=== PATIENT | female | born 1980 | race Caucasian/White ===

== ENCOUNTER → 2021-08-26 16:47 | Outpatient (BNVA) | payer MEDICAID, SELFPAY | PROVIDERS: PCP Nurse Practitioner Family; Visit Provider Nurse Practitioner Family | DX: Z30.42 Encounter for surveillance of injectable contraceptive (principal); Z32.02 Encounter for pregnancy test, result negative | CPT/HCPCS: 81025 ==

== ENCOUNTER → 2022-06-17 15:37 | Outpatient (BNVA) | payer BC, SELFPAY | PROVIDERS: Visit Provider Nurse Practitioner | DX: N39.0 Urinary tract infection, site not specified (principal); Z20.2 Contact with and (suspected) exposure to infections with a predominantly sexual mode of transmission; L25.9 Unspecified contact dermatitis, unspecified cause | CPT/HCPCS: 87491; 87591; 87661 ==

== ENCOUNTER → 2022-07-25 14:47 | Outpatient (BNVA) | payer BC, MEDICAID, SELFPAY | PROVIDERS: Referring Provider Nurse Practitioner; Visit Provider Podiatrist Foot & Ankle Surgery | DX: S92.412A Displaced fracture of proximal phalanx of left great toe, initial encounter for closed fracture (principal); W23.0XXA Caught, crushed, jammed, or pinched between moving objects, initial encounter; R60.9 Edema, unspecified | CPT/HCPCS: 73630 ==

== ENCOUNTER → 2022-09-22 16:36 | Outpatient (BNVA) | payer BC, MEDICAID, SELFPAY | PROVIDERS: Visit Provider Nurse Practitioner | DX: Z30.42 Encounter for surveillance of injectable contraceptive (principal); Z79.899 Other long term (current) drug therapy | CPT/HCPCS: 80307; 84702 ==

== ENCOUNTER → 2023-04-17 16:43 | Outpatient (BNVA) | payer BC, MEDICAID, SELFPAY | PROVIDERS: PCP Family Medicine; Visit Provider Nurse Practitioner | DX: Z30.42 Encounter for surveillance of injectable contraceptive (principal) | CPT/HCPCS: 81025 ==

== ENCOUNTER → 2023-07-24 14:06 | Outpatient (BNVA) | payer BC, MEDICAID, SELFPAY | PROVIDERS: PCP Family Medicine; Visit Provider Nurse Practitioner | DX: Z30.42 Encounter for surveillance of injectable contraceptive (principal) | CPT/HCPCS: 81025 ==

== ENCOUNTER 2023-08-28 12:31 | Outpatient (CLI) | payer BC, MEDICAID, SELFPAY ==
--- NOTE | 2023-08-28 12:37 | XRR_ITS ---
PROCEDURE INFORMATION: Exam: XR Left Hand Exam date and time: 08/28/2023 12:40 PM Age: 43 years old Clinical indication: Pain; Finger(s); Left; Additional info: G56.03 - carpal tunnel syndrome, bilateral upper limbs TECHNIQUE: Imaging protocol: Radiologic exam of the left hand. Views: 3 or more views. COMPARISON: No relevant prior studies available. FINDINGS: Bones/joints: No fracture or dislocation is seen. Small 5 mm lucent cyst is seen within the subchondral distal 1st metacarpal along the outer margin. Osseous structures and joint spaces are otherwise unremarkable. No abnormal soft tissue calcification is seen. Soft tissues: No significant focal soft tissue abnormality. XR/XR hand LT min 3V* [id number] IMPRESSION: Small 5 mm subchondral cyst distal 1st metacarpal and otherwise negative exam left hand.
--- NOTE | 2023-08-28 12:37 | XRR_ITS ---
PROCEDURE INFORMATION: Exam: XR Right Hand Exam date and time: 08/28/2023 12:40 PM Age: 43 years old Clinical indication: Pain; Hand; Right; Additional info: G56.03 - carpal tunnel syndrome, bilateral upper limbs TECHNIQUE: Imaging protocol: Radiologic exam of the right hand. Views: 3 or more views. COMPARISON: CR XR finger RT min 2V [id number] 10/05/2021 11:58 AM FINDINGS: Bones/joints: No fracture or dislocation is seen. Osseous structures and joint spaces appear unremarkable. No abnormal soft tissue calcification is seen. Soft tissues: No significant focal soft tissue abnormality. XR/XR hand RT min 3V* [id number] IMPRESSION: No acute findings.
--- NOTE | 2023-08-28 12:37 | XRR_ITS ---
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 Pain for last month. ; Additional info: S20.211a - contusion of right front wall of thorax, initi. . . TECHNIQUE: Imaging protocol: Radiologic exam of the right ribs. Views: 2 views. COMPARISON: No relevant prior studies available. FINDINGS: Bones/joints: No fracture or other acute osseous abnormality is seen about the right ribs. Pleural space: No underlying pulmonary or pleural abnormality is seen. Soft tissues: Soft tissues show no focal abnormality. XR/XR ribs RT 2V* [id number] IMPRESSION: No acute findings.
== END 2023-08-28 12:32 | disposition home or self-care (01) ==
LOC: RAD 12:34
PROVIDERS: PCP Family Medicine; Visit Provider Nurse Practitioner Family
DX: S20.211A Contusion of right front wall of thorax, initial encounter (principal); X58.XXXA Exposure to other specified factors, initial encounter; G56.03 Carpal tunnel syndrome, bilateral upper limbs; M85.642 Other cyst of bone, left hand
CPT/HCPCS: 71100; 73130; 80053; 80061; 81003; 82306; 82607; 82746; 83036; 84443; 85025

== ENCOUNTER → 2023-09-04 10:44 | Outpatient (BNVA) | payer BC, MEDICAID, SELFPAY | PROVIDERS: PCP Family Medicine; Visit Provider Nurse Practitioner Family | DX: Z12.4 Encounter for screening for malignant neoplasm of cervix (principal) | CPT/HCPCS: 85651; 86038; 86140; 86431; 87624 ==

== ENCOUNTER → 2023-12-10 08:35 | Outpatient (BNVA) | payer BC, MEDICAID, SELFPAY | PROVIDERS: PCP Nurse Practitioner Family; Visit Provider Nurse Practitioner Family | DX: Z30.42 Encounter for surveillance of injectable contraceptive (principal); R31.9 Hematuria, unspecified | CPT/HCPCS: 81000; 81025 ==

== ENCOUNTER 2024-07-28 13:21 | Outpatient (CLI) | payer OTHER, SELFPAY ==
--- NOTE | 2024-07-28 13:30 | XR_ITS ---
WS: [id number] DEXA (DUAL ENERGY X-RAY ABSORPTIOMETRY) Bone mineral density was performed using a GuideWall machine. HISTORY: Z78.9 - Other specified health status COMPARISON: None available. Lumbar spine BMD (L1-L4): 1.265 g/cm2 T score: 0.7 Z score: 0.2 Total hip BMD: Left: 1.076 g/cm2. T score: 0.5 Z score: 0.4 Right: 1.156 g/cm2. T score: 1.2 Z score: 1.0 10 year probability of a major osteoporotic fracture is 2.4%. XR/XR DEXA axial skeleton* [id number] IMPRESSION: NORMAL BONE MINERAL DENSITY based upon the WHO classification for females.
== END 2024-07-28 13:22 | disposition home or self-care (01) ==
LOC: RAD 13:22
PROVIDERS: PCP Nurse Practitioner Family; Visit Provider Nurse Practitioner Family
DX: Z13.820 Encounter for screening for osteoporosis (principal); Z78.9 Other specified health status; Z91.89 Other specified personal risk factors, not elsewhere classified
CPT/HCPCS: 77080

== ENCOUNTER → 2024-11-17 10:23 | Outpatient (BNVA) | payer OTHER, SELFPAY | PROVIDERS: PCP Nurse Practitioner Family; Visit Provider Nurse Practitioner Family | DX: M67.919 Unspecified disorder of synovium and tendon, unspecified shoulder (principal); M67.432 Ganglion, left wrist; G56.03 Carpal tunnel syndrome, bilateral upper limbs; R31.9 Hematuria, unspecified; D64.9 Anemia, unspecified; Z30.42 Encounter for surveillance of injectable contraceptive; R70.0 Elevated erythrocyte sedimentation rate; N89.8 Other specified noninflammatory disorders of vagina | CPT/HCPCS: 73030; 73110; 80053; 81003; 81025; 83036; 85025; 85651; 87070; 87077; 87086; 87184; 87205 ==

== ENCOUNTER → 2025-01-06 10:47 | Outpatient (BNVA) | payer OTHER, SELFPAY | PROVIDERS: PCP Nurse Practitioner Family; Visit Provider Physician Assistant | DX: M19.012 Primary osteoarthritis, left shoulder (principal); M75.42 Impingement syndrome of left shoulder | CPT/HCPCS: 73030 ==

== ENCOUNTER → 2025-01-13 10:50 | Outpatient (BNVA) | payer OTHER, SELFPAY | PROVIDERS: PCP Nurse Practitioner Family; Visit Provider Physician Assistant | DX: G56.03 Carpal tunnel syndrome, bilateral upper limbs (principal); G56.21 Lesion of ulnar nerve, right upper limb | CPT/HCPCS: 73110 ==

== ENCOUNTER → 2025-01-20 13:42 | Outpatient (BNVA) | payer OTHER, SELFPAY | PROVIDERS: PCP Nurse Practitioner Family; Visit Provider Nurse Practitioner Family | DX: N39.0 Urinary tract infection, site not specified (principal) | CPT/HCPCS: 81000 ==

== ENCOUNTER 2025-01-26 05:41 | Day surgery (SDC) | payer OTHER, MEDICAID, SELFPAY ==
[2025-01-26] VITALS (7 sets, daily range): BP systolic 103–124; BP diastolic 81–91; PULSE 71–86; RESP 12–18; TEMP 36.1; O2SAT 95–100
--- NOTE | 2025-01-26 06:12 | P.ANESASSM_ITS ---
Pre-Anesthetic Assessment Height/Weight: Height 5 ft 9 in Preop Diagnosis: Carpal/cubital tunnel syndrome Operation Date: 01/26/25 07:00 Proposed Procedures p RIGHT Carpal Tunnel Release(Right) - Bruce Huntington, DO s RIGHT Cubital Tunnel Release(Right) - Bruce Jovanny, DO s POSSIBLE Ulnar Nerve Transposition(Right) - Bruce Huntington, DO Was Beta Lucie taken within 24 hours: N/A Was Clonidine taken within 24 hours: N/A Social No alcohol and No tobacco Exam alert, oriented x 3, clear to auscultation bilaterally and regular rate & rhythm Airway Submandibular: within normal limits Cervical ROM: within normal limits Mallampati: Class I Dentition: full Anesthetic Plan ASA status: 1 Anesthesia: General and Regional (specify below) Other: No prior issues with anesthesia NPO since yesterday evening Denies any cardiac or pulmonary issues Labs from October reviewed and WNL METs greater than 4 test neg Plan for general anesthesia with preop nerve block Medications/Allergies Home Medications ?Medication ?Instructions ?Recorded ?Confirmed ?Last Taken ?Type medroxyprogesterone 150 mg/mL 150 mg IM ONCE 90 days # 90 mL 11/17/24 01/25/25 Unknown Rx intramuscular suspension ciprofloxacin HCl 250 mg tablet 250 mg PO BID 5 days # 10 tabs 01/20/25 01/25/25 01/25/25 Rx (Cipro) ibuprofen 800 mg tablet (IBU) 800 mg PO DAILY 01/25/25 01/25/25 Unknown History Allergies Allergy/AdvReac Type Severity Reaction Status Date / Time No Known Allergies Allergy Verified 01/20/25 13:40 [facility] Anesthesia Medical History Vaginal yeast infection DJD of left shoulder Urinary tract infection Elevated sed rate Rotator cuff dysfunction Ganglion cyst of dorsum of left wrist Vaginal discharge Osteoarthritis, hip, bilateral Narrowing of lumbar intervertebral disc space Compression deformity of vertebra Anterolisthesis of lumbar spine Levoscoliosis At high risk for osteoporosis Uses Depo-Provera as primary control method Arthritis Poison villa Laceration of left thigh History of MRSA infection Bilateral hip pain Lumbar pain Cervical cancer screening Cyst of joint of left hand Hand pain Joint ache Macular degeneration Glaucoma Encounter for laboratory test Carpal tunnel syndrome, bilateral Contusion of rib on right side Breast cancer screening by mammogram Encounter for screening for cardiovascular disorders Medication management Anemia Depo-Provera contraceptive status Pharyngitis Social History Smoking and tobacco/nicotine status: never used tobacco/nicotine 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 Reproductive History Para: 3 Data Anesthesia Cardiac Studies: No Data to Display
[2025-01-26] MEDS: sodium chloride 0.9% 1,000 ML 30 ML IV (06:13)
[2025-01-26] MEDS: acetaminophen 1,000 MG/100 ML PIGGYBACK 400 MG IV (06:17)
[2025-01-26] MEDS: ketorolac 30 mg/mL INJ IVP (06:17)
[2025-01-26] MEDS: scopolamine 1 mg PATCH 1 PATCH TRANSDERMA (06:26)
[2025-01-26 06:34] LABS: OR HCG Qualitative Urine Negative (Negative)
--- NOTE | 2025-01-26 06:54 | ANES.PROC ---
Anesthesia Procedures Procedure/Date: 01/26/25 Nerve Block ^: Nerve Block 1: Main Anesthesia: other (100 mcg fentanyl and 2 mg Versed) Time Out Performed: Yes Consent: requested by attending/covering physician and from patient Nerve block location: supraclavicular Anesthesia monitors applied: pulse oximetry, EKG, BP cuff and oxygen Nerve block position: supine Anesthetic Used: ropivicaine 0.5% Amount of anesthesia used (mL): 30 Ultrasound used to: recognize landmarks Nerve Stimulator Used?: Yes Interscalene/Femoral BLK: other needle (pjunk 4inch) Injection: neg aspiration of heme Patient Tolerated Procedure: well Complications: none Additional Comments: Decadron 4 mg added to block
--- NOTE | 2025-01-26 06:59 | W.PM.OPSUD ---
Surgery/Procedure H&P Update DATE OF PROCEDURE: January 26, 2025 DATE H&P PERFORMED: 01/13/25 H&P UPDATE INFORMATION: I have reviewed H&P completed within last 30 days, I have examined patient prior to procedure and No changes to prior documentation PREOP DIAGNOSIS: Right carpal/cubital tunnel syndrome PRIMARY INDICATION FOR PROCEDURE: Right carpal tunnel syndrome, right cubital tunnel syndrome PLANNED PROCEDURE: Operation Date: 01/26/25 07:00 Proposed Procedures p RIGHT Carpal Tunnel Release(Right) - DO julieta Traylor RIGHT Cubital Tunnel Release(Right) - DO julieta Traylor POSSIBLE Ulnar Nerve Transposition(Right) - Bruce Petty DO
[2025-01-26] MEDS: ceFAZolin 2,000 MG in sodium chloride 0.9% (plus) 50 ML 100 MG IV (07:00)
--- NOTE | 2025-01-26 08:13 | P.BOP_ITS ---
Date of Procedure: 01/26/25 Surgeon: Bruce Petty DO Conventional Underwriter(s): None Procedure(s) performed: Right carpal tunnel release Right cubital tunnel release Findings of the procedure(s): Patient found to have right carpal tunnel syndrome right cubital tunnel syndrome underwent procedure as planned without issues or complications. Patient had no evidence of subluxation of the ulnar nerve underwent procedure as planned. Estimated blood loss: 5 mL Specimen(s) removed: None Post-operative diagnosis: Right carpal tunnel syndrome, right cubital tunnel syndrome
--- NOTE | 2025-01-26 08:15 | P.BOP_ITS ---
Date of Procedure: [January 26, 2025] Surgeon: [Dr. Petty DO] Gang Knife Fish Chopper(s): [N/A] Procedure(s) performed: [Right carpal tunnel release right cubital tunnel release.] Findings of the procedure(s): [Right carpal tunnel syndrome right cubital tunnel syndrome. No ulnar nerve subluxation so no need for ulnar nerve transposition. Procedure went well and as planned.] Estimated blood loss: [5 mL] Specimen(s) removed: [] Post-operative diagnosis: []
--- NOTE | 2025-01-26 08:15 | PM.OP ---
Operative Report Date of procedure: January 26, 2025 Surgeon: Bruce Petty DO Procedure: Preoperative diagnosis: Right carpal tunnel syndrome Right cubital tunnel syndrome Postop Diagnosis: Same Procedure done: Right carpal tunnel release Right?cubital tunnel tunnel release (ulnar nerve decompression at elbow) Surgeon: Bruce Petty DO Estimated blood loss: 5 mL Tourniquet? 20 minutes IV fluids: 500 mL Complications: None Findings: See operative report narrative Condition: stable Disposition: same day Brief History: Patient's been seen and worked up in the outpatient setting and findings consistent with preoperative diagnosis.? Patient has right carpal tunnel syndrome as well as right?cubital tunnel syndrome which has been worked up in the outpatient setting has physical exam findings consistent with this as well as confirmatory nerve conduction/EMG nerve conduction study consistent with diagnosis.? Patient's failed conservative treatment.? As result through shared decision making agreed to proceed with? right carpal tunnel and right?cubital tunnel release with possible ulnar nerve transposition we talked about treatment options as far as nonoperative and operative intervention.? Understands risk benefits complication alternatives surgical nonsurgical treatment options.? Understanding risks patient agrees to proceed with surgical intervention. Understanding these risks patient agrees to proceed with surgery.? Consent obtained in the preoperative holding area. Procedure: Patient seen evaluate in the preoperative holding area.? Consent was reviewed and signed with patient.? Correct extremity marked.? Patient seen evaluated by anesthesia department once cleared for surgery was then taken back to the operative suite placed in supine position all bony prominences well-padded patient properly secured to bed.? right upper extremity placed onto armboard.? Nonsterile tourniquet applied right upper arm.? Patient then underwent anesthesia per the anesthesia department.? Patient's right upper extremity was then prepped and draped in standard orthopedic fashion.? Final timeout performed.? Patient received appropriate preoperative antibiotics. Esmarch was used exsanguinate the right upper extremity.? Tourniquet was insufflated to 250 mmHg. I started with the carpal tunnel release first.? I made a standard open carpal tunnel release starting with the distal most extent in the palm at the Gallagher's cardinal line and the incision line was made in line with the fourth ray and ended just distal to the wrist crease.? Sharp scalpel incision was made through skin and subcutaneous tissue I then utilizing self retainer then began to dissect with dissection scissors split longitudinally the palmar fascia.? Next I then utilizing my assistant professor surgical technology Kasdan retractors subsequently utilizing scalpel feathered through the palmaris brevis as well as through the transverse carpal ligament distally.? Once I encountered the floor of the transverse carpal ligament and entered into the carpal tunnel I then switched to dissection scissors.? Carefully released the distal extent of the transverse carpal ligament to the palmar fat.? Care was to protect the recurrent branch and not injured this during this part of the case.? Next I then placed a [place]ampscott underneath the transverse carpal ligament proximally to protect the nerve in the carpal tunnel contents.? And then I subsequently under loupe magnification utilize my dissection scissors to release the transverse carpal ligament into the antebrachial fascia under direct visualization with care to keep my scissors with a curved ulnarly away from the palmar cutaneous branch.? The transverse carpal was then completely decompressed proximally and a Swampscott was then placed both distally and proximally throughout the carpal tunnel and had complete decompression of the nerve.? The nerve did appear to have hourglass shape as it went through the carpal tunnel.? With significant irritation noted around the nerve.? No masses were noted within the contents of the carpal tunnel.? This completed the carpal tunnel release and then I subsequently irrigated the wound bed and placed a wet Ray-Brandon into the incision for later closure. Next marked out the landmarks of the right elbow of the medial epicondyle and olecranon and made a curvilinear incision following the course of the ulnar nerve at the medial aspect of the elbow.? Sharp scalpel incision was made through skin and subcutaneous tissue.? Next I switched to Littler dissection scissors and spread in plane of the medial antebrachial cutaneous nerve branching which was protected throughout this part of the dissection.? Then I directly came down over the fascia and identified the 2 heads of the FCU fascia and split this right in the middle and subsequently identified my ulnar nerve distally.? This was then completely released distally under direct visualization and loupe magnification.? Once the nerve was then identified I then subsequently tracked this proximally and released this through Lake's ligament as well as complete decompression of the nerve proximally all the way past the intermuscular septum.? The nerve was completely released and decompressed both proximally and distally.? Ulnar nerve neurolysis performed and completed both proximally and distally with dissection scissors.? I then took the elbow through range of motion and there was no instability or subluxating of the ulnar nerve.? This completed?cubital tunnel release.? ?Next the wound bed was thoroughly irrigated.? Tourniquet was deflated.? Hemostasis was satisfactory at the?cubital tunnel release surgery site. I then inspected the carpal tunnel incision and this was found to have satisfactory hemostasis and all this was maintained through bipolar electrocautery.? At this point time I sequentially closed?cubital tunnel site with 3-0 Vicryl suture in a running horizontal mattress nylon stitch.? ? The carpal tunnel release surgery was then closed in standard interrupted mattress fashion.? Dressing was Xeroform 4 x 4's ABD Curlex soft roll and an Zaid wrap has a bulky soft dressing. Patient was then awakened from anesthesia and taken to PACU in stable condition. Disposition: Patient taken to PACU in stable condition recovering well.? Patient will receive appropriate discharge instructions as well as pain medication postoperatively.? We will follow-up with me in the office in 2 weeks.? Patient understands agrees with current plan.? All questions answered.? Patient understands if any questions or concerns and contact the office for follow-up appointment..
--- NOTE | 2025-01-26 08:18 | PM.PACU ---
PACU note Narrative: Patient is a 44-year-old female just underwent a right carpal tunnel right cubital tunnel release. Patient transferred to PACU in stable condition. Pain is well controlled. Dressing on hand is dry and in place. Patient's fingers are warm and well-perfused. Patient can wiggle fingers. normal cap refill under 2 seconds. Unable to perform any further assessment of motor sensation due to residual block. Exam: awake Disposition: discharged
--- NOTE | 2025-01-26 09:25 | ANE.PACU2 ---
Inpatient post-anesthesia follow up: Airway intact: Yes Vital signs: Temperature 97.0 F Pulse Rate 78 Respiratory Rate 16 Blood Pressure 109/83 Pulse Oximetry 95 Oxygen Delivery Me thod Room Air Oxygen Flow Rate Fraction of Inspir ed Oxygen Hydration adequate: Yes Nausea and vomiting: No Pain level: 1 Mental status: Baseline
== END 2025-01-26 09:25 | disposition home or self-care (01) ==
PROVIDERS: Student in an Organized Health Care Education/Training Program; PCP Nurse Practitioner Family; Visit Provider Student in an Organized Health Care Education/Training Program
PROC: (CPT 64721; principal; 2025-01-26 07:00)
PROC: (CPT 64718; 2025-01-26 07:00)
DX: G56.01 Carpal tunnel syndrome, right upper limb (principal); G56.21 Lesion of ulnar nerve, right upper limb; Z79.899 Other long term (current) drug therapy
CPT/HCPCS: 64718; 64721; 81025; J0131; J0690; J1100; J1885; J2250; J2371; J2405; J2704; J3010; J7030; J9999

== ENCOUNTER → 2025-06-28 15:27 | Outpatient (BNVA) | payer MEDICAID, SELFPAY | PROVIDERS: PCP Nurse Practitioner Family; Visit Provider Nurse Practitioner Family | DX: Z13.6 Encounter for screening for cardiovascular disorders (principal); D64.9 Anemia, unspecified; R06.02 Shortness of breath; R53.83 Other fatigue; R70.0 Elevated erythrocyte sedimentation rate; L23.7 Allergic contact dermatitis due to plants, except food; Z79.899 Other long term (current) drug therapy | CPT/HCPCS: 71046; 81003; 82306; 82607; 82728; 82746; 83550; 84439; 84443; 85025; 85651; 86140 ==

== ENCOUNTER 2025-08-10 10:57 | Outpatient (CLI) | payer MEDICAID, SELFPAY ==
--- NOTE | 2025-08-10 11:15 | USCV_ITS ---
Mojgan Negrete Age: 45 Gender: F : 1980 Exam Date: 08/10/2025 11:19 Ordering Phys: KIRAN Arias APRN Technologist: Exam Location: [facility] Indication: cp sob BP: 130 / 75 HR: 828 Rhythm: Sinus Technical Quality: Adequate MEASUREMENTS (Male / Female) Normal Values 2D ECHO LV Diastolic Diameter PLAX 4.1 cm 4.2 - 5.9 / 3.9 - 5.3 cm IVS Diastolic Thickness 1.2 cm 0.6 - 1.0 / 0.6 - 0.9 cm IVS Systolic Thickness 1.7 cm LVPW Diastolic Thickness 1.3 cm 0.6 - 1.0 / 0.6 - 0.9 cm LVPW Systolic Thickness 0.3 cm LVOT Diameter 2.0 cm LV Ejection Fraction 2D Teich 71.6 % LV Ejection Fraction MOD 4C 72.0 % LV Ejection Fraction MOD 2C 67.6 % LV Ejection Fraction 2C AL 66.9 % LA Diameter 3.2 cm RA Systolic Volume 4C AL 101.2 ml RA Systolic Volume 4C MOD 98.4 ml Aorta at Sinotubular Diameter 3.1 cm IVC Diameter 1.6 cm M-MODE LA Ao Ratio MM 0.9 AV Cusp Separation MM 2.1 cm DOPPLER AV Peak Velocity 76.7 cm/s LVOT Peak Velocity 81.0 cm/s AV Area Cont Eq vti 7.3 cm squared AV Area Cont Eq pk 2.7 cm squared MV Peak Velocity 91.0 cm/s MV Area PHT 4.4 cm squared Mitral E to A Ratio 0.9 TV Peak Velocity 333.5 cm/s TR Peak Velocity 367.0 cm/s TR Peak Gradient 54.0 mmHg TV Peak E Velocity 120.0 cm/s PV Peak Velocity 75.0 cm/s FINDINGS Left Ventricle Normal left ventricular size and systolic function, EF 68%.flattened septum in systole consistent with right ventricle pressure overload. Right Ventricle Markedly dilated right ventricle with a slightly diminished ejection fraction Right Atrium Markedly dilated right atrium with the interatrial septum bulging to the left Left Atrium Normal left atrial size. , Appears to be somewhat squeezed by the right atrial dilatation and high pressure IA Septum Interatrial septum appears to be bulging to the left side Mitral Valve No gross abnormalities noted Aortic Valve No gross abnormalities noted Tricuspid Valve Thickened tricuspid valve. Moderately severe tricuspid regurgitation with elevated velocity of 4.3 m/s. Estimated pulmonary artery peak systolic pressure of 76 mmHg and a mean pressure of 40 mmHg. Pulmonic Valve Pulmonic valve not well visualized. Pericardium No pericardial effusion. Aorta Normal aortic annulus size. IVC Normal inferior vena cava. CONCLUSIONS Normal left ventricular size and systolic function, EF 68%. Flattened septum in systole consistent with right ventricle pressure overload. Markedly dilated right atrium and right ventricle Moderately severe pulmonary hypertension with an estimated pulmonary artery peak systolic pressure of 76 with a mean of 40 mm of Hg. Interatrial septum appears to be bulging to the left side. There is no pericardial effusion. There are no intracardiac masses. No similar previous studies are available for comparison Dr Sarah Kohler MD FACC (Electronically Signed) Final Date: 12 August 2025 14:15 S
== END 2025-08-10 10:58 | disposition home or self-care (01) ==
LOC: RAD 11:00
PROVIDERS: PCP Nurse Practitioner Family; Visit Provider Nurse Practitioner Family
DX: R06.09 Other forms of dyspnea (principal); I51.9 Heart disease, unspecified; I27.22 Pulmonary hypertension due to left heart disease; I51.0 Cardiac septal defect, acquired
CPT/HCPCS: 93306

== ENCOUNTER 2025-08-24 11:58 | Outpatient (CLI) | payer MEDICAID, SELFPAY ==
--- NOTE | 2025-08-24 | ECG_ITS ---
[facility] 2025[facility]24 Pat Name: Mojgan Negrete Department: Room: Gender: Female Director [employer]: : 1980 Requested By: KIRAN Arias Order Number: [id number] Richter MD: Sarah Kohler M.D. Interpretive Statements Lung unchanged pre/post procedure; Intraprocedure shortess of breath;; Symptoms resoled by discharge PROCEDURE: At the baseline, the patient's blood pressure was with a heart rate of. The baseline electrocardiogram showed normal sinus rhythm with diffuse nonspecific ST-T changes. Frequent PVCs. The patient exercised for 5 minutes and 9 seconds on a standard Juan Daniel protocol. Patient attained a maximum heart rate of 141 beats per minute(80 % of the maximum predicted heart rate) with a blood pressure at the peak exercise of 135/74 mm Hg. The EKG at the peak exercise revealed nonspecific changes. Patient did not have any chest pain or any significant cardiac arrhythmias with the exercise. The baseline ventricular arrhythmia disappeared with a peak exercise During the recovery phase, there were no new changes. Blood pressure at the end of the recovery phase was 156/95 mm Hg with a heart rate of 101 per minute. CONCLUSION: 1. Nonspecific EKG changes with the treadmill exercise 2. No exercise-induced chest pain or cardiac arrhythmia. The baseline PVCs disappeared with the peak exercise 3. Slightly impaired exercise tolerance, attained a maximum of 7.0 METs Electronically Signed On 08-25-2025 20:07:59 PATIENT INTAKE REPRESENTATIVE by Sarah Kohler M.D. [email or web address] [id number]
[2025-08-24 12:57] VITALS: BMI 25.8
[2025-08-24 12:58] VITALS: BP 156/95; PULSE 99
== END 2025-08-24 11:59 | disposition home or self-care (01) ==
LOC: CDL 11:59
PROVIDERS: PCP Nurse Practitioner Family; Visit Provider Nurse Practitioner Family
DX: R07.9 Chest pain, unspecified (principal); R53.83 Other fatigue; R93.1 Abnormal findings on diagnostic imaging of heart and coronary circulation
CPT/HCPCS: 93017

== ENCOUNTER 2025-08-31 12:10 | Inpatient (IN) | payer MEDICAID, SELFPAY ==
[2025-08-31] VITALS (8 sets, daily range): BP systolic 118–139; BP diastolic 97–106; PULSE 82–103; RESP 16–27; TEMP 36.4; O2SAT 90–99; BMI 25.8
--- NOTE | 2025-08-31 12:12 | XR_ITS ---
WS: [id number] Exam: XR chest 1V portable [id number] Date/Time of Exam: 08/31/2025 12:12 PM Reason For Exam: sob Comparison 06/28/2025. Lungs are fully inflated and clear. Normal cardiomediastinal silhouette. Bony structures are intact. XR/XR chest 1V portable [id number] IMPRESSION: 1. Negative chest.
--- NOTE | 2025-08-31 12:12 | ECG_ITS ---
[employer] [facility] Test Date: 2025-08-31 Pat Name: Mojgan Negrete Department: Room: Gender: Female [employer]: : 1980 Requested By: Florentino Li Order Number: [id number] Neelam MD: Haja Dominguez M.D. Measurements Intervals [place] Rate: 90 P: 56 WV: 170 QRS: 141 QRSD: 100 T: -25 QT: 351 QTc: 430 Interpretive Statements SINUS RHYTHM POSSIBLE LEFT ATRIAL ENLARGEMENT [-0.1mV P-WAVE IN V1/V2] INDETERMINATE AXIS INCOMPLETE RIGHT BUNDLE BRANCH BLOCK [90+ ms QRS DURATION, TERMINAL R IN V1/V2, 40+ ms S IN I/aVL/V4/V5/V6] ST DEVIATION AND MODERATE T-WAVE ABNORMALITY, CONSIDER ANTEROLATERAL ISCHEMIA [-0.1+ mV T-WAVE IN V3-V6] ST DEVIATION AND MODERATE T-WAVE ABNORMALITY, CONSIDER INFERIOR ISCHEMIA [-0.1+ mV T-WAVE IN II/aVF] No previous ECG available for comparison Electronically Signed On 09-01-2025 13:08:50 QUALITY CONTROLLER by Haja Dominguez M.D. [email or web address] [id number]
--- NOTE | 2025-08-31 12:13 | CT_ITS ---
WS: [id number] CT CHEST ANGIOGRAPHY WITH REFORMATS HISTORY: hypoxemia, right heart strain on echo TECHNIQUE: Contiguous axial images are obtained through the chest during arterial injection of intravenous contrast. Images are reconstructed to evaluate the pulmonary arteries. MIP imaging also reviewed. All CT scans at [facility] use at least one of these dose optimization techniques: automated exposure control; mA and/or kV adjustment per patient size (includes targeted exams where dose is matched to clinical indication); or iterative reconstruction. CONTRAST: Omnipaque 350; 100 mL IV. DLP: 460.72 mGy.cm COMPARISON: None available. Good opacification of the pulmonary arteries. No emboli are identified. Main pulmonary artery is dilated measuring 3.6 cm transversely. Normal size thoracic aorta. Heart is enlarged. There is marked dilatation of the RIGHT atrium and moderate dilatation of the RIGHT ventricle with RIGHT heart strain. Marked flattening of the interventricular septum. LEFT heart is not enlarged. Mild tricuspid regurgitation into the hepatic veins. Lung volumes are slightly decreased. There is mild hazy attenuation in the lower lung corado which is probably related to the poor inspiration. No mass or pneumonia is identified. No mediastinal or hilar adenopathy. No pericardial or pleural effusions. Upper abdomen is negative. Normal thoracic alignment. CT/CT angio chest PE protcl [id number] IMPRESSION: 1. No pulmonary embolism. 2. Dilated pulmonary artery. Consider pulmonary hypertension. 3. Marked RIGHT heart enlargement. RIGHT ventricle and atria are significantly enlarged. Marked atrial dilatation. 4. RIGHT heart strain. Tricuspid regurgitation into the hepatic veins.
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
--- OUTSIDE RECORDS SUMMARY | 2025-08-31 12:16 | XMS_ITS | Encounter Summary ---
Author Organization [facility] Address [address] [place] [address] Care Team Providers Care Sales Person Name Role Phone Malcolm Tyler MD Primary Care Provider [phone] [phone] Encounter Details Date Type Department Care Team (Late st Contact Info) Description 06/03/2018 Ancillary Orders [facility] Admitting [address] [place] [address] Wilmer Harper MD NO ADDRESS ON FILE H/O pneumothorax Social History Tobacco Use Types Packs/Day Years Used Date Smoking Tobacco: Former Smokeless Tobacco: Never Alcohol Use Standard Drinks/Week Comments Yes 0 (1 standard drink = 0.6 oz pur e alcohol) occasionally Comments No Sex and Gender Information Value Date Recorded Sex Assigned at Not on file 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 Exam: XR CHEST PA AND LATERAL 2 VW Date/Time of Exam: 06/03/2018 12:31 PM Reason For Exam: See Diagnosis. Diagnosis: H/O pneumothorax. Findings: Small right pleural effusion. No left pleural abnormality. Ill-defined 1 cm nodular opacity projected over the right lung base laterally seen on the frontal view only. Smaller ill-defined nodule projected over the right midlung zone laterally. Left lung is clear. Cardiomediastinal contours unremarkable. No significant bony disease. IMPRESSION: Small right pleural effusion. Ill-defined nodular opacities projected over the right mid to lower lung zone seen on frontal view only. Post-treatment follow-up recommended; if persistent, CT could be performed for further assessment in absence of prior exams. [id number] Narrative Procedure Note Octaviano Proctor MD - 06/03/2018 IMPRESSION: Please see below. Exam: XR CHEST PA AND LATERAL 2 VW Date/Time of Exam: 06/03/2018 12:31 PM Reason For Exam: See Diagnosis. Diagnosis: H/O pneumothorax. Findings: Small right pleural effusion. No left pleural abnormality. Ill-defined 1 cm nodular opacity projected over the right lung base laterally seen on the frontal view only. Smaller ill-defined nodule projected over the right midlung zone laterally. Left lung is clear. Cardiomediastinal contours unremarkable. No significant bony disease. IMPRESSION: Small right pleural effusion. Ill-defined nodular opacities projected over the right mid to lower lung zone seen on frontal view only. Post-treatment follow-up recommended; if persistent, CT could be performed for further assessment in absence of prior exams. [id number] Wilmer Harper MD DIAGNOSTIC IMAGING ORDERABLES Final Result documented in this encounter Visit Diagnoses Diagnosis H/O pneumothorax Personal history of other diseases of respiratory system H/O pneumothorax Personal history of other diseases of respiratory system documented in this encounter Care Teams Sales Person Relationship Specialty Start Date End Date Malcolm Tyler MD [address] [facility] [address] [place] [phone] PCP - General Family Practice 06/10/18 documented as of this encounter
[2025-08-31 12:45] LABS: Hematocrit 49.7 % (36-47); Hemoglobin 16.00 g/dL (11.27-16.99); Mean Corpuscular HGB Conc 32.2 g/dL (30-55); Mean Corpuscular Hemoglobin 29.6 pg (27-33); Mean Corpuscular Volume 91.9 fl (85-98); Nucleated Red Blood Cells % 0 %; Platelet Count 229 10^3/cmm (157-399); Red Blood Count 5.41 10^6/uL (3.85-5.65); White Blood Count 11.18 10^3/uL (3.29-11.43)
--- NOTE | 2025-08-31 12:46 | ED_ITS ---
HPI - SOB/Dyspnea 2 General: Chief Complaint: Shortness of Breath/Dyspnea Stated Complaint: Sent by Dr Teixeira Time Seen by Provider: 08/31/25 12:33 History of Present Illness: HPI Narrative: 45-year-old female with a history of hyp ertension who presents to the emergency room from cardiology clinic with concern for pulmonary embolism. She had been referred to cardiology with worsening dyspnea. Dr. Teixeira saw the patient in clinic today. She said whenever she walked her her O2 sats dropped into the 80s. An echocardiogram had been done that showed severe right heart strain. Patient is fairly vague about her symptoms. She says has been going on for months. Mostly exertional dyspnea. She has some tightness in her chest but she has not had any recent pain. No lower extremity swelling or calf pain. No altered mental status. No fevers. No cough. Related Data Home Medications ?Medication ?Instructions ?Recorded ?Confirmed brimonidine 0.15 % eye drops 1 drp ophthalmic (eye) BI D 08/31/25 08/31/25 dorzolamide 22.3 mg-timolol 6.8 1 drp ophthalmic (eye) BID 08/31/25 08/31/25 mg/mL eye drops latanoprost 0.005 % eye drops 1 drp ophthalmic (eye) B EDTIME 08/31/25 08/31/25 Previous Rx's ?Medication ?Instructions ?Recorded medroxyprogesterone 150 mg/mL 150 mg IM .[id number] #1 m L 07/14/25 intramuscular suspension (Depo-Provera) albuterol sulfate 90 mcg/actuation 1 inh inhalation Q4 H PRN shortness 07/17/25 aerosol inhaler (Ventolin HFA) of breath or wheezing # 8.5 grams ibuprofen 800 mg tablet See Rx Instructions .Route 1 .COMPLEX #90 tabs losartan 25 mg tablet 25 mg PO DAILY #30 tabs 07/21 Allergies Allergy/AdvReac Type Severity Reaction Status Date / Time No Known Allergies Allergy Verified 08/31/25 10:58 Review of Systems 2 Narrative: Constitutional symptoms: Negative except as documented in HPI. Skin symptoms: Negative except as documented in HPI. Eye symptoms: Negative except as documented in HPI. ENMT symptoms: Negative except as documented in HPI. Respiratory symptoms: Negative except as documented in HPI. Cardiovascular symptoms: Negative except as documented in HPI. Gastrointestinal symptoms: Negative except as documented in HPI. Genitourinary symptoms: Negative except as documented in HPI. Musculoskeletal symptoms: Negative except as documented in HPI. Neurologic symptoms: Negative except as documented in HPI. Psychiatric symptoms: Negative except as documented in HPI. Endocrine symptoms: Negative except as documented in HPI. [facility] ED 2 PFS: Medical History (Updated 08/31/25 @ 14:15 by Maile Cameron MD) Abnormal echocardiogram Chest pain Methamphetamine use Dyspnea Upper respiratory tract infection, unspecified type Heart murmur Essential hypertension Dyspnea on minimal exertion Dyspnea on exertion Chronic fatigue Shortness of breath Cellulitis Vaginal yeast infection DJD of left shoulder Urinary tract infection Elevated sed rate Rotator cuff dysfunction Ganglion cyst of dorsum of left wrist Vaginal discharge Osteoarthritis, hip, bilateral Narrowing of lumbar intervertebral disc space Compression deformity of vertebra Anterolisthesis of lumbar spine Levoscoliosis At high risk for osteoporosis Uses Depo-Provera as primary control method Arthritis Poison villa Laceration of left thigh History of MRSA infection Bilateral hip pain Lumbar pain Cervical cancer screening Cyst of joint of left hand Hand pain Joint ache Macular degeneration Glaucoma Encounter for laboratory test Carpal tunnel syndrome, bilateral Contusion of rib on right side Breast cancer screening by mammogram Encounter for screening for cardiovascular disorders Medication management Anemia Depo-Provera contraceptive status Pharyngitis Social History Smoking and tobacco/nicotine status: current every day tobacco/nicotine user ([place] and used to smoke meth ) 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 Reproductive History: Para: 3 Physical Exam 2 Narrative: EXAM NARRATIVE: General: Alert, no acute distress. Skin: Warm, dry. Head: Normocephalic, atraumatic. Neck: Supple, trachea midline. Eye: Extraocular movements are intact. Ears, nose, mouth and throat: mucosa moist. Cardiovascular: Regular, Normal peripheral perfusion. Respiratory: Lungs are clear to auscultation, respirations are non-labored, breath sounds are equal, Symmetrical chest wall expansion. Gastrointestinal: Soft, Nontender, Non distended Musculoskeletal: Normal ROM, no deformity. Neurological: Alert and oriented, No focal neurological deficit observed. Psychiatric: Cooperative, appropriate mood & affect. Course 2 Vital Signs: Vital signs: Vital Signs Temperature 97.6 F 08/31/25 12:25 Pulse Rate 88 08/31/25 14:31 Respiratory Rate 16 08/31/25 14:31 Blood Pressure 136/105 08/31/25 14:31 Pulse Oximetry 99 08/31/25 14:31 Oxygen Delivery Me thod Room Air 08/31/25 12:25 MDM - SOB/Dyspnea Medical Decision Making Medical decision making Patient's reason for coming to the emergency room: Dyspnea. Right heart strain. Concern for PE. Social determinants: Patient is employed. I reviewed the patient's medical record. Patient had a stress test recently. Nonspecific EKG changes on treadmill exercise. No exercise-induced chest pain. Slightly impaired exercise tolerance. Echocardiogram done recently. Normal left ventricular size and systolic function. Flattened septum with right ventricle overload. Dilated right atrium and right ventricle. Severe pulmonary hypertension I reviewed the patient's current home meds Patient takes losartan for hypertension. Alternate historians: None Differential diagnosis for patient with shortness of breath includes but is not limited to and based on the above HPI, review of systems and physical exam: Pneumonia. Bronchitis. Asthma or COPD with acute exacerbation. Acute coronary syndrome / [place]. Pulmonary embolism. Anxiety. Congestive heart failure. Viral infections including influenza and Covid-19. Atrial fibrillation. Anxiety. Pleural effusion. Pneumothorax. Orders placed to evaluate differential diagnosis based on the above differential, HPI and physical exam. In this patient with pulmonary hypertension there is concern for pulmonary embolism so the patient was sent to the emergency room for evaluation for this. EKG: Time 1228. Rate 90. Normal sinus rhythm, signs of possible left atrial enlargement. Diffuse nonspecific ST changes, no ectopy, incomplete right bundle branch block, This was reviewed and interpreted by myself the ER physician at 1234. EKG: Time 1404. Rate 92. Normal sinus rhythm, signs of possible left atrial enlargement. Diffuse nonspecific ST changes, no ectopy, incomplete right bundle branch block, This was reviewed and interpreted by myself the ER physician at 1410. No significant changes from EKG done previously today in the emergency room. Chest x-ray: No acute process. No infiltrate. No pneumothorax. This was reviewed and interpreted by myself the emergency room physician. I also reviewed the radiology report. CT of the chest with PE protocol: No PE. Extensive right heart strain. See full read. This was reviewed and interpreted by myself the emergency room physician. I also reviewed the radiology report. Lab Review: Laboratory results were reviewed and interpreted by myself the emergency room physician. No leukocytosis. No anemia. Mild renal insufficiency with a BUN and creatinine of 26 and 1.1. Initial troponin is normal. proBNP is mildly elevated around 3000. Assessment of risk: Level of risk: Is a fairly high risk patient at this point. New diagnosis of primary pulmonary hypertension likely. Hospitalization considerations: Patient is being admitted. She had profound hypoxemia with exertion and Dr. Teixeira's clinic. She thinks she might need heart catheterization. Reexamination: Patient remained stable. No increased work of breathing. No altered mental status. No focal motor deficits. No oxygen requirements while seated. Consultation: I spoke again with Dr. Teixeira who recommends admission. Consultation: I spoke with Dr. Dominguez who is on-call for cardiology. He will consult on the patient. No medication recommendations at this time. Consultation: I spoke with Dr. Dr. Stark who is on-call for the hospitalist service who agrees to admission. Assessment and plan: Pulmonary hypertension Hypoxemia with exertion -I discussed the patient with the hospitalist on-call who is admitting the patient. - Discussed findings and plan with patient. Answered any questions. - All laboratory values were reviewed and interpreted personally by myself, the ER physician - All imaging was reviewed and interpreted personally by myself, the ER physician. - Evaluation and treatment of this problem were appropriate in the emergency setting Lab Data 08/31/25 12:37 08/31/25 12:37 Labs/Radiology: Radiology Impressions Chest X-Ray 08/31/25 12:12 IMPRESSION: 1. Negative chest. Chest CTA 08/31/25 12:13 IMPRESSION: 1. No pulmonary embolism. 2. Dilated pulmonary artery. Consider pulmonary hypertension. 3. Marked RIGHT heart enlargement. RIGHT ventricle and atria are significantly enlarged. Marked atrial dilatation. 4. RIGHT heart strain. Tricuspid regurgitation into the hepatic veins. Laboratory Results WBC 11.18 10^3/uL (3.29-11.43) 08/31/25 12:37 RBC 5.41 10^6/uL (3.85-5.65) 08/31/25 12:37 Hgb 16.00 g/dL (11.27-16.99) 08/31/25 12:37 Hct 49.7 % (36-47) H 08/31/25 12:37 MCV 91.9 fl (85-98) 08/31/25 12:37 MCH 29.6 pg (27-33) 08/31/25 12:37 MCHC 32.2 g/dL (30-55) 08/31/25 12:37 RDW 13.0 % (12.1-15.1) 08/31/25 12:37 Plt Count 229 10^3/cmm (157-399) 08/31/25 12:37 MPV 10.5 fL (7.4-10.4) H 08/31/25 12:37 Neut % (Auto) 50.7 % 08/31/25 12:37 Lymph % (Auto) 33.0 % 08/31/25 12:37 [place] % (Auto) 10.9 % 08/31/25 12:37 Eos % (Auto) 4.6 % 08/31/25 12:37 Baso % (Auto) 0.5 % 08/31/25 12:37 Neut # (Auto) 5.67 10^3/uL (1.8-7.7) 08/31/25 12:37 Lymph # (Auto) 3.7 10^3/uL (0.8-4.8) 08/31/25 12:37 [place] # (Auto) 1.2 10^3/uL (0.2-0.9) H 08/31/25 12:37 Eos # (Auto) 0.5 10^3/uL (0.0-0.8) 08/31/25 12:37 Baso # (Auto) 0.1 10^3/uL (0.0-0.1) 08/31/25 12:37 Nucleated RBC % (auto) 0 % 08/31/25 12:37 Nucleated RBCs # 0.0 /100WBC 08/31/25 12:37 Specimen Type Arterial 08/31/25 13:50 Sample Site Brachial, right 08/31/25 13:50 ABG pH 7.43 (7.35-7.45) 08/31/25 13:50 ABG pCO2 28.0 mmHg (35-45) L 08/31/25 13:50 ABG pO2 59.4 mmHg (80.0-100.0) L 08/31/25 13:50 ABG PO2/FiO2 Ratio 282 08/31/25 13:50 ABG HCO3 18.4 mmol/L (22-26) L 08/31/25 13:50 ABG O2 Saturation 91.9 08/31/25 13:50 ABG Base Excess -4.4 mmol/L (-2.0-2.0) L 08/31/25 13:50 Nahid Test N/a 08/31/25 13:50 A-a O2 Gradient 7.2 mmHg (5-10) 08/31/25 13:50 Hematocrit 47.2 % (37-47) H 08/31/25 13:50 Hgb O2 Saturation 90.5 % (95-100) L 08/31/25 13:50 Carboxyhemoglobin 0.8 %THgb (0.4-20.1) 08/31/25 13:50 Methemoglobin 0.8 % (0.4-1.5) 08/31/25 13:50 Total Hemoglobin 15.4 g/dL (12-16) 08/31/25 13:50 Sodium 135.0 mmol/L (131-143) 08/31/25 13:50 Potassium 4.1 mmol/L (3.5-5.0) 08/31/25 13:50 Glucose 83.0 mg/dL (70-115) 08/31/25 13:50 Ionized Calcium 1.2 mmol/L (1.1-1.4) 08/31/25 13:50 O2 Delivery Device Room air 08/31/25 13:50 FiO2 21.0 % 08/31/25 13:50 Baby Nurse ID Amh 08/31/25 13:50 Sodium 143 mmol/L (136-145) 08/31/25 12:37 Potassium 4.6 mmol/L (3.5-5.1) 08/31/25 12:37 Chloride 107 mmol/L (98-107) 08/31/25 12:37 Carbon Dioxide 20 mmol/L (22-29) L 08/31/25 12:37 Anion Gap 20.6 (5-19) H 08/31/25 12:37 BUN 26 mg/dL (6-20) H 08/31/25 12:37 Creatinine 1.1 mg/dL (0.5-0.9) H 08/31/25 12:37 GFR Calculation 54.0 mL/min (90-130) L 08/31/25 12:37 Glucose 66 mg/dL (65-115) 08/31/25 12:37 Calculated Osmolality 299 mOsm/kg (285-295) H 08/31/25 12:37 Calcium 9.2 mg/dL (8.5-10.5) 08/31/25 12:37 Total Bilirubin 0.5 mg/dL (0.15-1.2) 08/31/25 12:37 AST 38 U/L (0-32) H 08/31/25 12:37 ALT 69 U/L (0-33) H 08/31/25 12:37 Alkaline Phosphatase 70 U/L (35-105) 08/31/25 12:37 Troponin T Baseline 12 ng/L (0-10) H 08/31/25 12:37 NT-Pro-B Natriuret Pep 3269 pg/mL (0-125) H 08/31/25 12:37 Total Protein 6.4 g/dL (6.6-8.7) L 08/31/25 12:37 Albumin 4.3 g/dL (3.5-5.2) 08/31/25 12:37 Globulin 2.1 g/dL (1.3-4.6) 08/31/25 12:37 HCG, Qual Negative (Negative) 08/31/25 12:37 All radiology interpretation(s) finalized by discharge Discharge Plan Discharge Patient Disposition: Admitted As Inpatient Clinical Impression: Pulmonary hypertension, Hypoxemia Condition: Stable Coding Level of Care Code ED Software Development Manager for Nicolle Douglas
[2025-08-31 13:02] LABS: HCG, Serum Qual Negative (Negative)
[2025-08-31 13:08] LABS: Troponin(5th) Baseline 12 ng/L (0-10)
[2025-08-31 13:17] LABS: Alanine Aminotransferase 69 U/L (0-33); Albumin Level 4.3 g/dL (3.5-5.2); Alkaline Phosphatase 70 U/L (35-105); Blood Urea Nitrogen 26 mg/dL (6-20); Calcium 9.2 mg/dL (8.5-10.5); Carbon Dioxide 20 mmol/L (22-29); Chloride 107 mmol/L (98-107); Globulin 2.1 g/dL (1.3-4.6); Glucose 66 mg/dL (65-115); Osmolality Calculated 299 mOsm/kg (285-295); Sodium 143 mmol/L (136-145); Total Protein 6.4 g/dL (6.6-8.7)
[2025-08-31 13:18] LABS: Anion Gap 20.6 (5-19); Aspartate Amino Transferase 38 U/L (0-32); Potassium 4.6 mmol/L (3.5-5.1)
[2025-08-31 13:25] LABS: NT Pro B Type Natriuretic Pept 3269 pg/mL (0-125)
[2025-08-31 14:03] LABS: ABG PCO2 28.0 mmHg (35-45); ABG PH Result 7.43 (7.35-7.45); Alveolar-Arterial Oxygen Gradi 7.2 mmHg (5-10); Arterial Blood Gas Hematocrit 47.2 % (37-47); Blood Gas Operator Identificat AMH; Blood Gas Sample Site Brachial, right; Blood Gas Sample Type Arterial; Carboxyhemoglobin 0.8 %THgb (0.4-20.1); Glucose Level-ABG 83.0 mg/dL (70-115); HCO3 ABG 18.4 mmol/L (22-26); Ionized Calcium Level - ABG 1.2 mmol/L (1.1-1.4); Methemoglobin 0.8 % (0.4-1.5); Oxygen Saturation ABG 91.9; PO2 ABG 59.4 mmHg (80.0-100.0); PO2 FiO2 Ratio Arterial Blood 282; Potassium Level - ABG 4.1 mmol/L (3.5-5.0); Sodium Level - ABG 135.0 mmol/L (131-143)
--- NOTE | 2025-08-31 14:12 | ECG_ITS ---
[employer] Test Date: 2025-08-31 Pat Name: Mojgan Negrete Department: Room: Gender: Female Tester Sound: : 1980 Requested By: Florentino Li Order Number: [id number] Neelam MD: Haja Dominguez M.D. Measurements Intervals [place] Rate: 92 P: 57 [place]: 164 QRS: 132 QRSD: 105 T: -31 QT: 363 QTc: 449 Interpretive Statements SINUS RHYTHM WITH SINUS ARRHYTHMIA POSSIBLE LEFT ATRIAL ENLARGEMENT [-0.1mV P-WAVE IN V1/V2] INDETERMINATE AXIS INCOMPLETE RIGHT BUNDLE BRANCH BLOCK [90+ ms QRS DURATION, TERMINAL R IN V1/V2, 40+ ms S IN I/aVL/V4/V5/V6] POSSIBLE RIGHT VENTRICULAR HYPERTROPHY [SOME/ALL OF: PROMINENT R IN V1, LATE TRANSITION, RAD, KENNETH, SSS] ST DEVIATION AND MODERATE T-WAVE ABNORMALITY, CONSIDER ANTEROLATERAL ISCHEMIA [-0.1+ mV T-WAVE IN V3-V6] Compared to ECG 08/31/2025 12:28:22 No significant changes Electronically Signed On 09-01-2025 19:44:53 HAND TIRE TRIMMER by Haja Dominguez M.D. [email or web address]
[2025-08-31 14:56] LABS: Troponin 5 2HR 12.12 ng/L (0-10); Troponin 5 2HR Delta 0.12 ABS# (0-10)
--- NOTE | 2025-08-31 18:12 | ECG_ITS ---
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 Measurements Intervals [place] Rate: 98 P: 60 UT: 163 QRS: 128 QRSD: 104 T: 44 QT: 334 QTc: 428 Interpretive Statements SINUS RHYTHM POSSIBLE LEFT ATRIAL ENLARGEMENT [-0.1mV P-WAVE IN V1/V2] INCOMPLETE RIGHT BUNDLE BRANCH BLOCK [90+ ms QRS DURATION, TERMINAL R IN V1/V2, 40+ ms S IN I/aVL/V4/V5/V6] POSSIBLE RIGHT VENTRICULAR HYPERTROPHY [SOME/ALL OF: PROMINENT R IN V1, LATE TRANSITION, RAD, KENNETH, SSS] ST DEVIATION AND MODERATE T-WAVE ABNORMALITY, CONSIDER ANTEROLATERAL ISCHEMIA [-0.1+ mV T-WAVE IN V3-V6] Compared to ECG 08/31/2025 14:04:50 T-wave abnormality still present Possible ischemia still present Electronically Signed On 09-01-2025 19:44:17 ENVIRONMENTAL REMEDIATION CONSULTANT by Haja Dominguez M.D. [email or web address]
--- NOTE | 2025-08-31 18:14 | PM.CONSULT ---
Providers/Reason For Consult Consulting Physician/Specialty*: Velasquez Teixeira MD Reason for Consult*: pulmonary hypertension Requesting Physician: Dr. Stark Attending Physician: Gunnar Stark MD Primary Care Provider: CATHI Valentine History of Present Illness History of Present Illness Mojgan Negrete is a 45 year old female with a history of smoking, HTN, and PRIDE and at rest since the summer. Was seen by me for this in my office today and was found to have a drop in Pox to 82% with ambulation. I sent her to ER where CT chest was negative for PE. Echo with severe RV enlargement and severe pulmonary HTN. Admitted for further assessment of hypoxic respiratory failure. Having difficulty with SOB even with conversation. Echo 08/12/25: Normal left ventricular size and systolic function, EF 68%. Flattened septum in systole consistent with right ventricle pressure overload. Markedly dilated right atrium and right ventricle Severe pulmonary hypertension with an estimated pulmonary artery peak systolic pressure of 76 with a mean of 40 mm of Hg. Interatrial septum appears to be bulging to the left side. Exercise treadmill stress test negative for ischemia but frequent PVCs present Medications/Allergies Home Medications ?Medication ?Instructions ?Recorded ?Confirmed ?Last Taken ?Type medroxyprogesterone 150 mg/mL 150 mg IM .U0kjqvib #1 mL 07/14/25 08/31/25 07/07/25 Rx intramuscular suspension (Depo-Provera) albuterol sulfate 90 mcg/actuation 1 inh inhalation Q4H PRN shortness 07/17/25 08/31/25 Unknown Rx aerosol inhaler (Ventolin HFA) of breath or wheezing #8.5 grams ibuprofen 800 mg tablet See Rx Instructions .Route 08/17/25 08/31/25 08/30/25 08:00 Rx .COMPLEX #90 tabs losartan 25 mg tablet 25 mg PO DAILY #30 tabs 08/17/25 08/31/25 08/30/25 Rx brimonidine 0.15 % eye drops 1 drp ophthalmic (eye) BID 08/31/25 08/31/25 08/31/25 08:00 History dorzolamide 22.3 mg-timolol 6.8 1 drp ophthalmic (eye) BID 08/31/25 08/31/25 08/31/25 08:30 History mg/mL eye drops latanoprost 0.005 % eye drops 1 drp ophthalmic (eye) BEDTIME 08/31/25 08/31/25 08/30/25 20:00 History Allergies Allergy/AdvReac Type Severity Reaction Status Date / Time No Known Allergies Allergy Verified 08/31/25 10:58 PFSH Acute PFSH: Medical History (Updated 08/31/25 @ 18:24 by Velasquez Teixeira MD) Abnormal echocardiogram Chest pain Methamphetamine use Dyspnea Upper respiratory tract infection, unspecified type Heart murmur Essential hypertension Dyspnea on minimal exertion Dyspnea on exertion Chronic fatigue Shortness of breath Cellulitis Vaginal yeast infection DJD of left shoulder Urinary tract infection Elevated sed rate Rotator cuff dysfunction Ganglion cyst of dorsum of left wrist Vaginal discharge Osteoarthritis, hip, bilateral Narrowing of lumbar intervertebral disc space Compression deformity of vertebra Anterolisthesis of lumbar spine Levoscoliosis At high risk for osteoporosis Uses Depo-Provera as primary control method Arthritis Poison villa Laceration of left thigh History of MRSA infection Bilateral hip pain Lumbar pain Cervical cancer screening Cyst of joint of left hand Hand pain Joint ache Macular degeneration Glaucoma Encounter for laboratory test Carpal tunnel syndrome, bilateral Contusion of rib on right side Breast cancer screening by mammogram Encounter for screening for cardiovascular disorders Medication management Anemia Depo-Provera contraceptive status Pharyngitis Social History Smoking and tobacco/nicotine status: current every day tobacco/nicotine user ([place] and used to smoke meth ) 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 Reproductive History: Para: 3 Vitals/I&O/Wt Last Vital Signs Temp 97.6 F 08/31/25 12:25 Pulse 103 H 08/31/25 18:11 Resp 17 08/31/25 18:11 BP 139/103 08/31/25 18:11 Pulse Ox 98 08/31/25 18:11 O2 Del Method Room Air 08/31/25 16:19 Weight last 48 hrs Weight 170 lb Physical Exam Narrative: General: In no acute distress Neck: No jugular venous distention or carotid bruits Heart: Normal S1 and S2 with a regular rate and rhythm, 2/6 murmur RSB Lungs: Normal respiratory effort with no use of intercostal muscles, clear lungs sounds to auscultation Extremities: No lower extremity edema Neuro: Alert and oriented x 3 Data 08/31/25 12:37 08/31/25 12:37 A&P Assessment and plan 1. Hypoxemia: 2. Pulmonary hypertension: 3. PVCs (premature ventricular contractions): 4. Right ventricular dilation: and hypokinesis 5. Tricuspid valve regurgitation: 6. Essential hypertension: Plan: This is a new diagnosis of hypoxic respiratory failure, severe pulmonary HTN and right sided heart failure. CT scan negative for pulmonary emboli. We will plan to do a right heart cath tomorrow to better assess her pulmonary HTN to aidin management. I recommend a Pulmonary Consult as well. PDMP PDMP Reviewed: Not Reviewed Coding Level of Care Code Acute Code for Chg Fwd Diagnoses Hypoxemia R09.02 Pulmonary hypertension I27.20 PVCs (premature ventricular contractions) I49.3 Right ventricular dilation I51.7 Tricuspid valve regurgitation I07.1 Essential hypertension I10
--- NOTE | 2025-08-31 18:32 | P.HP_ITS ---
Providers/Chief Complaint 2 Admitting Physician: Gunnar Stark MD Primary Care Provider: CATHI Valentine Chief Complaint: Sent by Dr Teixeira History of Present Illness Mojgan Negrete is a 45 year old female with prior medical history of pulmonary hypertension, hypoxia, methamphetamine use, tricuspid valve regurgitation, PVCs, murmur, cellulitis, DJD, levoscoliosis, MRSA, glaucoma, neuropathy, and anemia presenting with complaints of shortness of breath. She reports that since summer she has had shortness of breath that has become progressively worse. Exacerbated with exertion. She currently works in a [employer] and [employer] and does have occupational hazard and she is also had methamphetamine use since age 15. Denies nicotine use. Patient reports that she drinks at minimum 12 1.5 mL shots throughout the day. She normally drinks Australian honey/wild turkey whiskey. Patient is a new patient of Dr. Teixeira and recently had abnormal cardiac diagnostics. She was advised to appear to [facility] ED and came by private vehicle. 18 year old daughter at bedside. In the ED, 129/104, HR 97, RR 16, T97.6, O2 98%. WBC 11.18, Hgb 16, PLT 229. ABG; pH 7.43, pCO2 28, PaO2 59.4, HCO3 18.4. Creatinine 1.1, BUN 26. AST 38, ALT 69, ALP 70. Troponin 12. BNP 3269. 08/12/2025 echocardiogram; severe right heart strain, EF 60%, EKG; NSR, rate 90, signs of possible left atrial enlargement, incomplete right bundle branch block, CXR; no acute process, no infiltrate, no pneumothorax, CT of chest; no PE, extensive right heart strain. Heart cath planning. Will admit to hospital service for further evaluation and treatment Review of Systems 2 Narrative: Negative except as documented in HPI. Medications/Allergies Home Medications ?Medication ?Instructions ?Recorded ?Confirmed ?Last Taken ?Type medroxyprogesterone 150 mg/mL 150 mg IM .T0alboyl #1 m L 07/14/25 08/31/25 07/07/25 Rx intramuscular suspension (Depo-Provera) albuterol sulfate 90 mcg/actuation 1 inh inhalation Q4 H PRN shortness 07/17/25 08/31/25 Unknown Rx aerosol inhaler (Ventolin HFA) of breath or wheezing # 8.5 grams ibuprofen 800 mg tablet See Rx Instructions .Route 1 08/31/25 08/30/25 08:00 Rx .COMPLEX #90 tabs losartan 25 mg tablet 25 mg PO DAILY #30 tabs 10/08/31/25 08/30/25 Rx brimonidine 0.15 % eye drops 1 drp ophthalmic (eye) BI D 08/31/25 08/31/25 08/31/25 08:00 History dorzolamide 22.3 mg-timolol 6.8 1 drp ophthalmic (eye) BID 08/31/25 08/31/25 08/31/25 08:30 History mg/mL eye drops latanoprost 0.005 % eye drops 1 drp ophthalmic (eye) B EDTIME 08/31/25 08/31/25 08/30/25 20:00 History Allergies Allergy/AdvReac Type Severity Reaction Status Date / Time No Known Allergies Allergy Verified 08/31/25 10:58 PFSH Acute 2 PFSH: Medical History (Updated 08/31/25 @ 20:03 by Amisha Mancera, RUBBER ATTACHER, BUSINESS MAIL ENTRY CLERK) Abnormal echocardiogram Chest pain Methamphetamine use Dyspnea Upper respiratory tract infection, unspecified type Heart murmur Essential hypertension Dyspnea on minimal exertion Dyspnea on exertion Chronic fatigue Shortness of breath Cellulitis Vaginal yeast infection DJD of left shoulder Urinary tract infection Elevated sed rate Rotator cuff dysfunction Ganglion cyst of dorsum of left wrist Vaginal discharge Osteoarthritis, hip, bilateral Narrowing of lumbar intervertebral disc space Compression deformity of vertebra Anterolisthesis of lumbar spine Levoscoliosis At high risk for osteoporosis Uses Depo-Provera as primary control method Arthritis Poison villa Laceration of left thigh History of MRSA infection Bilateral hip pain Lumbar pain Cervical cancer screening Cyst of joint of left hand Hand pain Joint ache Macular degeneration Glaucoma Encounter for laboratory test Carpal tunnel syndrome, bilateral Contusion of rib on right side Breast cancer screening by mammogram Encounter for screening for cardiovascular disorders Medication management Anemia Depo-Provera contraceptive status Pharyngitis Social History Smoking and tobacco/nicotine status: current every day tobacco/nicotine user ([place] and used to smoke meth ) 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 Reproductive History: Para: 3 Vitals/I&O/Wt Last Vital Signs Temp 97.6 F 08/31/25 12:25 Pulse 103 H 08/31/25 18:11 Resp 17 08/31/25 18:11 BP 139/103 08/31/25 18:11 Pulse Ox 98 08/31/25 18:11 O2 Del Method Room Air 08/31/25 18:14 Weight last 48 hrs Weight 77.111 kg Weight 77.111 kg Physical Exam 2 Const: COMMON NORMALS: no acute distress, patient oriented x3 and alert Eye: COMMON NORMALS: Equal, round and reactive pupils present Lymph: LYMPHATIC: no lymphadenopathy noted Chest: COMMONS NORMALS: normal inspection of the chest Resp: COMMON NORMALS: normal respiratory effort Cardio: COMMON NORMALS: no JVD GI: COMMON NORMALS: Normal to inspection, nondistended, normoactive bowel sounds present Back/Pelvis: COMMON NORMALS: no CVA tenderness Extremity: GENERAL: Yes normal exam except as noted Data 08/31/25 12:37 08/31/25 12:37 A&P Assessment and plan 1. Pulmonary hypertension: With right-sided heart failure, tricuspid valve regurgitation, and hypoxic respiratory failure 08/12/2025 echocardiogram; severe right heart strain, EF 67% EKG; NSR, rate 90, signs of possible left atrial enlargement, incomplete right bundle branch block CXR; no acute process, no infiltrate, no pneumothorax CT of chest; no PE, extensive right heart strain Stress test/exercise treadmill; negative for ischemia, frequent PVCs Troponin 12. BNP 3269 Cardiology consulted, Dr. Teixeira, recommendations appreciated Pulmonary consulted, recommendations appreciated Heart cath planning N.p.o. at midnight 2. Dyspnea on exertion: ABG; pH 7.43, pCO2 28, PaO2 59.4, HCO3 18 RT Pulse oximetry Supplemental O2 to keep saturations greater than 92%Monitor CMP and BNP 3. Methamphetamine use: Since age 15 Cessation education 4. Transaminitis: AST 38, ALT 69, ALP 70 Avoid hepatotoxic agents Heavy every day alcohol use Cessation education 5. CEDRIC (acute kidney injury): Creatinine 1.1, BUN 26 Avoid nephrotoxic agents Monitor BMP PDMP PDMP Reviewed: Not Reviewed Attestations 2 Medical Necessity Statement*: Continuation of hospitalization for at least 1 midnight secondary to shortness of breath on exertion requiring observation and monitoring. PT/OT and home oxygen test prior to discharge. Diagnoses Pulmonary hypertension I27.20 Dyspnea on exertion R06.09 Dyspnea type: dyspnea on exertion Methamphetamine use F15.90 Transaminitis R74.01 CEDRIC (acute kidney injury) N17.9 Time Spent (min) 70
[2025-08-31 19:03] LABS: Troponin 5 6HR 12.97 ng/L (0-10); Troponin 5 6HR Delta 0.97 ng/L (0-12)
[2025-09-01] VITALS (22 sets, daily range): BP systolic 86–135; BP diastolic 57–91; PULSE 87–116; RESP 12–43; TEMP 35.6–36.8; O2SAT 85–97; BMI 26.9
[2025-09-01 04:08] LABS: Hematocrit 43.9 % (36-47); Hemoglobin 14.90 g/dL (11.27-16.99); Mean Corpuscular HGB Conc 33.9 g/dL (30-55); Mean Corpuscular Hemoglobin 30.4 pg (27-33); Mean Corpuscular Volume 89.6 fl (85-98); Nucleated Red Blood Cells % 0 %; Platelet Count 213 10^3/cmm (157-399); Red Blood Count 4.90 10^6/uL (3.85-5.65); White Blood Count 8.61 10^3/uL (3.29-11.43)
[2025-09-01 04:49] LABS: Anion Gap 17.4 (5-19); Blood Urea Nitrogen 21 mg/dL (6-20); Calcium 8.8 mg/dL (8.5-10.5); Carbon Dioxide 19 mmol/L (22-29); Chloride 109 mmol/L (98-107); Glucose 91 mg/dL (65-115); Magnesium 1.8 mg/dL (1.7-2.3); Osmolality Calculated 295 mOsm/kg (285-295); Potassium 4.4 mmol/L (3.5-5.1); Sodium 141 mmol/L (136-145)
[2025-09-01 05:12] LABS: Troponin T (5th) Once 14 ng/L (0-10)
[2025-09-01] MEDS: brimonidine 0.2% Op Soln 5 mL Btl 1 DROP EYE-BOTH ×2 (05:45→15:57)
[2025-09-01] MEDS: dorzolamide/timolol Op Soln 10 mL Btl 1 DROP EYE-BOTH ×2 (05:45→15:56)
--- NOTE | 2025-09-01 07:29 | P.PN_ITS ---
Subjective 2 Subjective: Patient is a very pleasant 45-year-old female seen and examined at bedside on hospital rounds this morning. Patient laying in bed stating continued shortness of breath, denies chest pain or worsening symptoms. Patient had abnormal outpatient stress test, is scheduled for heart catheterization this morning with Dr. Dominguez. Further interventions recommendations per cardiology, grateful for their consultation and management. Will continue supportive measures inpatient, vital signs remained stable, mildly elevated heart rate. Will work with patient on discharge planning, expect discharge within the next 24 hours. Vitals/I&O/Wt Last Vital Signs Temp 96.1 F L 09/01/25 00:00 Pulse 101 H 09/01/25 04:00 Resp 12 09/01/25 04:00 BP 118/74 09/01/25 04:00 Pulse Ox 92 09/01/25 04:00 O2 Del Method Nasal Cannula 09/01/25 04:00 Weight last 48 hrs Weight 80.3 kg Weight 77.111 kg Weight 77.111 kg Physical Exam 2 Const: COMMON NORMALS: no acute distress, patient oriented x3 and alert Eye: COMMON NORMALS: Equal, round and reactive pupils present PUPIL: Yes Equal, round and reactive pupils present Neck/C-Spine: COMMON NORMALS: no JVD Lymph: LYMPHATIC: no lymphadenopathy noted Chest: COMMONS NORMALS: normal inspection of the chest Resp: COMMON NORMALS: normal respiratory effort Cardio: COMMON NORMALS: no JVD GI: COMMON NORMALS: Normal to inspection, nondistended, normoactive bowel sounds present : COMMON NORMALS: Yes no CVA tenderness BLADDER/KIDNEY EXAM: Yes no CVA tenderness Back/Pelvis: COMMON NORMALS: no CVA tenderness Extremity: GENERAL: Yes normal exam except as noted Neuro: COMMON NORMALS: patient oriented x3 SENSORIUM/ORIENTATION: Yes alert Data 09/01/25 03:31 09/01/25 03:31 A&P Assessment and plan 1. Pulmonary hypertension: With right-sided heart failure, tricuspid valve regurgitation, and hypoxic respiratory failure 08/12/2025 echocardiogram; severe right heart strain, EF 67% EKG; NSR, rate 90, signs of possible left atrial enlargement, incomplete right bundle branch block CXR; no acute process, no infiltrate, no pneumothorax CT of chest; no PE, extensive right heart strain Stress test/exercise treadmill; negative for ischemia, frequent PVCs Troponin 12. BNP 3269 Cardiology consultation and management appreciated Pulmonary consulted, recommendations appreciated Heart cath pending 2. Dyspnea on exertion: ABG; pH 7.43, pCO2 28, PaO2 59.4, HCO3 18 RT Pulse oximetry Supplemental O2 to keep saturations greater than 92%Monitor CMP and BNP Albuterol neb every 4 as needed 3. Methamphetamine use: Since age 15 Cessation education 4. Transaminitis: AST 38, ALT 69, ALP 70 Avoid hepatotoxic agents Heavy every day alcohol use Cessation education 5. CEDRIC (acute kidney injury): Creatinine 1.0, BUN 21 Avoid nephrotoxic agents Monitor BMP Plan: 09/01/2025 Patient to have heart catheterization this morning, medication changes and discharge recommendations per cardiology. Will continue respiratory interventions with supportive measures with as needed albuterol and Pulmicort. Tachycardic, otherwise vital signs remained stable, patient has oxygen saturation currently wnl on room air. Pending physical therapy, Occupational Therapy evaluation recommendations. Pending home oxygen evaluation. PDMP PDMP Reviewed: Not Reviewed Attestations 2 Medical Necessity Statement*: Continuation of hospitalization for at least 1 midnight secondary to shortness of breath on exertion requiring observation and monitoring. PT/OT and home oxygen test prior to discharge. Coding Level of Care Code 84891 Diagnoses Pulmonary hypertension I27.20 Dyspnea on exertion R06.09 Dyspnea type: dyspnea on exertion Methamphetamine use F15.90 Transaminitis R74.01 CEDRIC (acute kidney injury) N17.9
--- NOTE | 2025-09-01 10:04 | W.PM.OPSUD ---
Surgery/Procedure H&P Update DATE OF PROCEDURE: September 01, 2025 DATE H&P PERFORMED: 08/31/25 H&P UPDATE INFORMATION: I have reviewed H&P completed within last 30 days, I have examined patient prior to procedure and No changes to prior documentation PREOP DIAGNOSIS: Severe pulmonary hypertension PRIMARY INDICATION FOR PROCEDURE: Severe pulmonary hypertension PLANNED PROCEDURE: Right heart cath PATIENT REASSESSED PRIOR TO SEDATION, WITH NO CHANGE NOTED: Yes PHYSICAL EXAM: alert, oriented x 3, clear to auscultation bilaterally and regular rate & rhythm AIRWAY EVAL/ANESTHESIA PLAN: normal airway, ASA III, Local Anesthesia, Risks, benefits & alternatives of sedation and/or procedure discussed and Patient agrees to continue as planned ADDITIONAL INFORMATION: Moderate sedation
--- NOTE | 2025-09-01 10:30 | PC.NURSE ---
Patient went for right heart cath this morning. Patient arrived back to the floor awake alert and appropriate. Access site was brachial venous pressure dressing intact. Nurse will monitor.
[2025-09-01 10:33] LABS: Arterial Blood Gas Hematocrit 46.2 % (37-47); Arterial Blood Gas Hematocrit 46.6 % (37-47); Blood Gas Operator Identificat AMH; Blood Gas Sample Site PA; Blood Gas Sample Site RV; Blood Gas Sample Type Not specified; Carboxyhemoglobin 1.0 %THgb (0.4-20.1); Methemoglobin 0.8 % (0.4-1.5); Methemoglobin 0.9 % (0.4-1.5)
[2025-09-01 10:34] LABS: Alveolar-Arterial Oxygen Gradi 9.7 mmHg (5-10); Arterial Blood Gas Hematocrit 46.6 % (37-47); Blood Gas Operator Identificat AMH; Blood Gas Sample Site RA; Blood Gas Sample Type Arterial; Carboxyhemoglobin 0.9 %THgb (0.4-20.1); Methemoglobin 0.9 % (0.4-1.5)
--- NOTE | 2025-09-01 11:41 | PM.PROC ---
Procedure Note: Date of procedure: 09/01/25 Pre-procedure diagnosis: Severe pulmonary hypertension Post-procedure diagnosis: same Procedure: RA pressure: 21/18 (16)mmHg RV pressure: 79/13 (26) mmHg PA pressure: 81/41 (55)mmHg PCWP:19/19 (17)mmHg CO: 5.98 L/min CI: 3.1 TPmmHg PVR: 6.35 Severe pre-capillary pulmonary hypertension Performing Provider: Haja Dominguez Complications: None Condition: stable Disposition: floor Coding Level of Care Code Acute Code for Chg Fwd
--- NOTE | 2025-09-01 14:03 | P.PN_ITS ---
<Statement entered by Velasquez Teixeira MD - 09/03/25 18:25> Patient was evaluated and cared for in conjunction with an advanced practice practitioner. I personally saw the patient and reviewed the chart and all pertinent data. I discussed the patient in detail with the advanced practice practitioner. Please see their note for complete assessment and agreed upon plan of care for the patient. Subjective 2 Subjective: Severe pre-capillary pulmonary hypertension noted on right heart cath this morning. Requested hospitalist service to consult pulmonology. She has oxygen saturation 85 to 87% on room air. She will need pulmonology specific guidance on managment. Vitals/I&O/Wt Last Vital Signs Temp 97.9 F 09/01/25 11:57 Pulse 106 H 09/01/25 13:15 Resp 19 H 09/01/25 13:15 BP 107/79 09/01/25 12:15 Pulse Ox 87 L 09/01/25 13:15 O2 Del Method Room Air 09/01/25 11:57 Weight last 48 hrs Weight 177 lb 0.499 oz Weight 170 lb Weight 170 lb Physical Exam 2 Const: COMMON NORMALS: no acute distress and patient oriented x3 GENERAL APPEARANCE: cooperative and comfortable ORIENTATION/CONSCIOUSNESS: Yes awake, Yes oriented to person, Yes oriented to place and Yes oriented to time Chest: COMMONS NORMALS: normal inspection of the chest and normal palpation of entire chest wall CHEST: Yes Symmetrical chest wall rise Resp: COMMON NORMALS: normal respiratory effort, No retractions, No use of accessory muscles and clear to auscultation bilaterally EFFORT & INSPECTION: Yes symmetric chest movement AUSCULTATION: clear to auscultation bilaterally Cardio: COMMON NORMALS: regular rate, regular rhythm, S1 normal heart sound present, S2 normal heart sound present, No gallops present (Cardio), No clicks present (Cardio) and No rub (Cardio) RATE: regular rate RHYTHM: regular rhythm HEART SOUNDS: S1 normal heart sound present, S2 normal heart sound present and Murmur heart sound present systolic Location: right sternal border Intensity: II/ PERIPHERAL PULSES: radial pulses present Extremity: COMMON NORMALS: no pedal edema Neuro: COMMON NORMALS: patient oriented x3 and moves all extremities S ENSORIUM/ORIENTATION: Yes oriented to person, Yes oriented to place and Yes oriented to time Data 09/01/25 03:31 09/01/25 03:31 A&P Assessment and plan 1. Pulmonary hypertension: 2. Methamphetamine use: 3. Tricuspid valve regurgitation: Plan: Severe pre capillary pulmonary hypertension, needs pulmonology consult prior to discharge. Also recommend event monitor due to frequent PVCs noted during stress test. PDMP PDMP Reviewed: Not Reviewed Attestations 2 Medical Necessity Statement*: per pulmonology Coding Level of Care Code Acute Code for Chg Fwd Diagnoses Pulmonary hypertension I27.20 Methamphetamine use F15.90 Tricuspid valve regurgitation I07.1
--- NOTE | 2025-09-01 14:24 | PC.OT ---
Per PT cancel OT evaluation orders due to patient's high level of independence. Will attempt again if pt declines in independence status.
--- NOTE | 2025-09-01 18:50 | P.CONIM_ITS ---
Providers/Reason For Consult 2 Consulting Physician/Specialty*: Amada PERES Reason for Consult*: Pulmonary hypertension Attending Physician: Amada Sheikh NP Primary Care Provider: CATHI Valentine History of Present Illness History of Present Illness Mojgan Negrete is a 45 year old female with active methamphetamine abuse, tricuspid valve regurgitation, glaucoma, neuropathy is admitted with increasing shortness of breath over the last few months. She works in a [employer] and [employer] industry. She has been on methamphetamine since the age of 15. Also drinks alcohol 12 1.5 mL shots throughout the day. She was seen by cardiology Dr. Teixeira and sent immediately to ED. In the ED she had an echocardiogram done recently that showed right heart strain severe possible left atrial enlargement incomplete right bundle branch block. Had a CT chest done that did not show any PE. She was then seen by cardiology and had a right and left heart cath performed by Dr. Dominguez showing very severe pulmonary hypertension precapillary. I was consulted for further management Patient denies any history of PE or primary pulmonary hypertension causes in the family. Medications/Allergies Home Medications ?Medication ?Instructions ?Recorded ?Confirmed ?Last Taken ?Type medroxyprogesterone 150 mg/mL 150 mg IM .[id number] #1 m L 07/14/25 08/31/25 07/07/25 Rx intramuscular suspension (Depo-Provera) albuterol sulfate 90 mcg/actuation 1 inh inhalation Q4 H PRN shortness 07/17/25 08/31/25 Unknown Rx aerosol inhaler (Ventolin HFA) of breath or wheezing # 8.5 grams ibuprofen 800 mg tablet See Rx Instructions .Route 1 08/31/25 08/30/25 08:00 Rx .COMPLEX #90 tabs losartan 25 mg tablet 25 mg PO DAILY #30 tabs 10/3 08/31/25 08/30/25 Rx brimonidine 0.15 % eye drops 1 drp ophthalmic (eye) BI D 08/31/25 08/31/25 08/31/25 08:00 History dorzolamide 22.3 mg-timolol 6.8 1 drp ophthalmic (eye) BID 08/31/25 08/31/25 08/31/25 08:30 History mg/mL eye drops latanoprost 0.005 % eye drops 1 drp ophthalmic (eye) B EDTIME 08/31/25 08/31/25 08/30/25 20:00 History Allergies Allergy/AdvReac Type Severity Reaction Status Date / Time No Known Allergies Allergy Verified 08/31/25 10:58 Current Medications Generic Name Dose Route Start Last Admin Trade Name Freq PRN Reason Stop Dose Admin Acetaminophen 650 mg 08/31/25 16:22 09/01/25 05:57 Acetaminophen 325 Mg Tablet PO 650 mg Q6H PRN Administration Mild/Mod Pain Or Temp >/= 101 Brimonidine Tartrate 1 drop 09/01/25 05:00 09/01/25 15:57 Brimonidine 0.2% Op Soln 5 Ml Btl EYE-BOTH 1 drop BID ELENO Administration Docusate Sodium 100 mg 09/01/25 05:00 09/01/25 05:45 Docusate Sodium 100 Mg Capsule PO Not Given DAILY ELENO Dorzolamide/Timolol 1 drop 09/01/25 05:00 09/01/25 15:56 Dorzolamide/Timolol Op Soln 10 Ml Btl EYE-BOTH 1 drop BID ELENO Administration Latanoprost 1 drop 08/31/25 21:00 08/31/25 22:15 Latanoprost 0.005% Op Soln 2.5 Ml Btl EYE-BOTH 1 drop BEDTIME ELENO Administration PFSH Acute 2 PFSH: Medical History (Updated 08/31/25 @ 20:03 by Amisha Mancear, EXECUTIVE RECRUITER, PROCUREMENT ENGINEER) Abnormal echocardiogram Chest pain Methamphetamine use Dyspnea Upper respiratory tract infection, unspecified type Heart murmur Essential hypertension Dyspnea on minimal exertion Dyspnea on exertion Chronic fatigue Shortness of breath Cellulitis Vaginal yeast infection DJD of left shoulder Urinary tract infection Elevated sed rate Rotator cuff dysfunction Ganglion cyst of dorsum of left wrist Vaginal discharge Osteoarthritis, hip, bilateral Narrowing of lumbar intervertebral disc space Compression deformity of vertebra Anterolisthesis of lumbar spine Levoscoliosis At high risk for osteoporosis Uses Depo-Provera as primary control method Arthritis Poison villa Laceration of left thigh History of MRSA infection Bilateral hip pain Lumbar pain Cervical cancer screening Cyst of joint of left hand Hand pain Joint ache Macular degeneration Glaucoma Encounter for laboratory test Carpal tunnel syndrome, bilateral Contusion of rib on right side Breast cancer screening by mammogram Encounter for screening for cardiovascular disorders Medication management Anemia Depo-Provera contraceptive status Pharyngitis Social History Smoking and tobacco/nicotine status: current every day tobacco/nicotine user ([place] and used to smoke meth ) 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 Reproductive History: Para: 3 Vitals/I&O/Wt Last Vital Signs Temp 98.2 F 09/01/25 16:00 Pulse 105 H 09/01/25 16:00 Resp 16 09/01/25 16:00 BP 86/57 09/01/25 16:00 Pulse Ox 96 09/01/25 16:00 O2 Del Method Room Air 09/01/25 16:00 Weight last 48 hrs Weight 177 lb 0.499 oz Weight 170 lb Weight 170 lb Physical Exam 2 Narrative: Per RN General: alert, NAD HEENT: EOMI Pulmonary: CTAB Cardiovascular: rrr, nl s1s2, Abdomen: soft, nt, nd, no r/g, Extremities: no edema Neurologic: grossly intact Agree with above exam Data 09/01/25 03:31 09/01/25 03:31 A&P Assessment and plan 1. Pulmonary hypertension: 2. Dyspnea: Plan: # Severe primary arterial pulmonary hypertension-differential includes primary causes including idiopathic pulmonary hypertension but most likely is methamphetamine induced PAH. I reviewed her numbers showing RA pressure mean of 16 RV mean of 26, PA mean 55, PCWP of 17, normal cardiac output and cardiac index. High transpulmonary gradient of 38 and high pulmonary vascular resistance at 6.35. I explained the findings to the patient explaining that she has very severe right heart failure secondary to primary arterial pulm hypertension caused by methamphetamine abuse most likely. I will however run a panel of tests to rule out other causes such as cardiovascular disorder as well as hypothyroidism with a TSH. I advised her strongly to seek help to stop methamphetamine abuse, help and assistance will be provided to touch base with centers for addiction. I also discussed with pharmacy regarding obtaining macitentan and tadalafil to be started at 10 mg and 20 mg daily. Unable to start this until her blood pressure normalizes. Currently she is running low systolics at 98. I have stopped her amlodipine at this time. Will also give her a trial of Lasix at 10 mg if her blood pressure does go up. She is on room air currently. I have also discussed with the nurse about potentially transferring her to the ICU if she decompensates or becomes hypotensive she might need inotrope support. Due to being on Medicaid, we will need to go through prior Auth to obtain these medications as outpatient meds through a specialty pharmacy before they can be initiated inpatient. I have touch base with the pharmacist regarding this. # Hypotension episodes-Will need inotropic support if she drops her systolic below 90 consistently. # Methamphetamine abuse-watch for withdrawals. Will refer her to [facility] post discharge. # Alcohol use - Explained to the patient that tadalafil and macitentan will need close monitoring of LFTs since they are hepatotoxic. I advised her strongly to stop drinking alcohol. I worry that if we stop the medications compliance and reliability about being able to abstain from alcohol and methamphetamine will always remain an issue. If she starts the medication she has a very high risk of rebound hypotension and decompensated right heart failure if she stops the medications without instruction on monitoring. Thank you the consult Medical decision making level-high High MDM includes number and complexity of problems actively addressed during encounter, amount and/or complexity of data reviewed/ordered [ previous or external records, resulted lab(s)/test(s), ordered lab(s)/test(s), independent historian, independent test interpretation and other healthcare professional discussion] and described risk of complication, morbidity or mortality of management as documented This documentation was created by [employer] corporate intern software (known for inherent corporate intern error). Every effort was made to assure accuracy of corporate intern. Any obvious errors or omissions should be clarified with the author of the document Telemedicine Consent Patient seen today via Telemedicine by agreement and consent of patient.? Telemedicine technology used during the visit includes audio and, as available, review of images.? The patient encounter is appropriate and reasonable under the circumstances given the patient?s particular presentation at this time.? The patient has been advised of the potential risks and limitations of this mode of treatment (including but not limited to the absence of in-person examination) and has agreed to be treated in a remote fashion in spite of them.? PDMP PDMP Reviewed: Not Reviewed Coding Level of Care Code 25783 Diagnoses Pulmonary hypertension I27.20 Dyspnea R06.00
[2025-09-01 19:22] LABS: Thyroid Stimulating Hormone 2.82 uIU/mL (0.27-4.20)
[2025-09-01 20:23] LABS: HIV 1 & 2 Antigen Non-Reactive (Non-Reactiv)
[2025-09-02] VITALS: BP 110/71; PULSE 97; RESP 19; TEMP 36.6; O2SAT 96
[2025-09-02 04:10] VITALS: BP 101/67; PULSE 99; RESP 15; TEMP 36.7; O2SAT 97
[2025-09-02 06:00] VITALS: BMI 26.9
[2025-09-02] MEDS: dorzolamide/timolol Op Soln 10 mL Btl 1 DROP EYE-BOTH (06:53)
[2025-09-02] MEDS: brimonidine 0.2% Op Soln 5 mL Btl 1 DROP EYE-BOTH (06:54)
[2025-09-02 07:07] VITALS: BP 122/83; PULSE 93; RESP 13; TEMP 36.3; O2SAT 98
[2025-09-02 09:18] VITALS: PULSE 118; O2SAT 96
--- NOTE | 2025-09-02 10:30 | PM.DCS ---
Discharge Providers Date of Admission: 09/01/25 07:29 Date of Discharge: September 02, 2025 Attending Provider at Admission: Gunnar Stark MD Attending Provider at Discharge: Amada Sheikh NP Primary Care Provider: CATHI Valentine Diagnoses at Discharge Discharge Diagnosis 1. Pulmonary hypertension: 2. Dyspnea: Reason for Visit Reason for Visit: Sent by Dr Teixeira Brief History: Admission: Mojgan Negrete is a 45 year old female with prior medical history of pulmonary hypertension, hypoxia, methamphetamine use, tricuspid valve regurgitation, PVCs, murmur, cellulitis, DJD, levoscoliosis, MRSA, glaucoma, neuropathy, and anemia presenting with complaints of shortness of breath. She reports that since summer she has had shortness of breath that has become progressively worse. Exacerbated with exertion. She currently works in a [employer] and [employer] and does have occupational hazard and she is also had methamphetamine use since age 15. Denies nicotine use. Patient reports that she drinks at minimum 12 1.5 mL shots throughout the day. She normally drinks Beninese honey/wild turkey whiskey. Patient is a new patient of Dr. Teixeira and recently had abnormal cardiac diagnostics. She was advised to appear to [facility] ED and came by private vehicle. 18 year old daughter at bedside. In the ED, 129/104, HR 97, RR 16, T97.6, O2 98%. WBC 11.18, Hgb 16, PLT 229. ABG; pH 7.43, pCO2 28, PaO2 59.4, HCO3 18.4. Creatinine 1.1, BUN 26. AST 38, ALT 69, ALP 70. Troponin 12. BNP 3269. 08/12/2025 echocardiogram; severe right heart strain, EF 60%, EKG; NSR, rate 90, signs of possible left atrial enlargement, incomplete right bundle branch block, CXR; no acute process, no infiltrate, no pneumothorax, CT of chest; no PE, extensive right heart strain. Heart cath planning. Will admit to hospital service for further evaluation and treatment. Hospital Course Hospital Course 1. Pulmonary hypertension: With right-sided heart failure, tricuspid valve regurgitation, and hypoxic respiratory failure 08/12/2025 echocardiogram; severe right heart strain, EF 67% EKG; NSR, rate 90, signs of possible left atrial enlargement, incomplete right bundle branch block CXR; no acute process, no infiltrate, no pneumothorax CT of chest; no PE, extensive right heart strain Stress test/exercise treadmill; negative for ischemia, frequent PVCs Troponin 12. BNP 3269 Cardiology consultation and management appreciated Pulmonary consulted, recommendations appreciated Heart cath Severe pre-capillary pulmonary hypertension 2. Dyspnea on exertion: ABG; pH 7.43, pCO2 28, PaO2 59.4, HCO3 18 RT Pulse oximetry Supplemental O2 to keep saturations greater than 92%Monitor CMP and BNP Albuterol neb every 4 as needed Home O2 evaluation - did not qualify for home O2 3. Methamphetamine use: ADVISED TOTAL CESSATION Since age 15 Cessation education 4. Transaminitis: ADVISED TOTAL CESSATION AST 38, ALT 69, ALP 70 Avoid hepatotoxic agents Heavy every day alcohol use Cessation education 5. CEDRIC (acute kidney injury): RESOLVED Creatinine 1.0, BUN 21 Avoid nephrotoxic agents Monitor BMP Patient given extensive education on the effects of chronic methamphetamine abuse and alcohol use, cessation strongly advised. spoke with patient about effects of prescribed medications and again reiterated the importance of not using methamphetamines or drinking alcohol and to be strictly adherent to medication regimen. Patient evaluated for home oxygen, did not qualify as O2 sat >90%. Patient is prescribed Lasix as needed 10 mg daily if she gets short of breath, advised to monitor blood pressures at home. Patient discharged in stable condition, will follow-up outpatient with primary care provider in 1 to 2 days, cardiology at regular appointment, and industrial safety and health manager within 1 week. Patient is also referred to [facility] to Dr.Murali López at 's request. All questions and concerns addressed to the patient at time of discharge. Physical Exam Const: COMMON NORMALS: no acute distress, patient oriented x3 and alert Eye: COMMON NORMALS: Equal, round and reactive pupils present PUPIL: Yes Equal, round and reactive pupils present Neck/C-Spine: COMMON NORMALS: no JVD Lymph: LYMPHATIC: no lymphadenopathy noted Chest: COMMONS NORMALS: normal inspection of the chest Resp: COMMON NORMALS: normal respiratory effort Cardio: COMMON NORMALS: no JVD GI: COMMON NORMALS: Normal to inspection, nondistended, normoactive bowel sounds present : COMMON NORMALS: Yes no CVA tenderness BLADDER/KIDNEY EXAM: Yes no CVA tenderness Back/Pelvis: COMMON NORMALS: no CVA tenderness Extremity: GENERAL: Yes normal exam except as noted Neuro: COMMON NORMALS: patient oriented x3 SENSORIUM/ORIENTATION: Yes alert Discharge Data Studies Completed and Pending Completed Studies During Hospitalization Category Date Time Status CT angio chest PE protcl [id number] Stat Cat Scan 08/31/25 12:13 Completed XR chest 1V portable [id number] Stat Exams 08/31/25 12:12 Completed Pending at discharge Category Date Time Status INTERNAL MEDICINE DOCTOR request for service Routine Exams 09/01/25 08:47 Taken SHERICE Profile Rheumatology Routine Lab 09/01/25 18:29 Received ANCA [Anti-Neutrophil Cytoplasmic AB] Routine Lab 09/01/25 18:29 Received Angiotensin Converting Enzyme Routine Lab 09/01/25 18: Received Centromere B Antibody Routine Lab 09/01/25 18: Received SCL 70 Routine Lab 09/01/25 18:29 Received Radiology Impressions Chest X-Ray 08/31/25 12:12 IMPRESSION: 1. Negative chest. Chest CTA 08/31/25 12:13 IMPRESSION: 1. No pulmonary embolism. 2. Dilated pulmonary artery. Consider pulmonary hypertension. 3. Marked RIGHT heart enlargement. RIGHT ventricle and atria are significantly enlarged. Marked atrial dilatation. 4. RIGHT heart strain. Tricuspid regurgitation into the hepatic veins. Laboratory Results WBC 8.61 10^3/uL (3.29-11.43) 09/01/25 03:31 RBC 4.90 10^6/uL (3.85-5.65) 09/01/25 03:31 Hgb 14.90 g/dL (11.27-16.99) 09/01/25 03:31 Hct 43.9 % (36-47) 09/01/25 03:31 MCV 89.6 fl (85-98) 09/01/25 03:31 MCH 30.4 pg (27-33) 09/01/25 03:31 MCHC 33.9 g/dL (30-55) D 09/01/25 03:31 RDW 13.0 % (12.1-15.1) 09/01/25 03:31 Plt Count 213 10^3/cmm (157-399) 09/01/25 03:31 MPV 10.7 fL (7.4-10.4) H 09/01/25 03:31 Neut % (Auto) 43.8 % 09/01/25 03:31 Lymph % (Auto) 40.0 % 09/01/25 03:31 Edgar % (Auto) 8.6 % 09/01/25 03:31 Eos % (Auto) 7.1 % 09/01/25 03:31 Baso % (Auto) 0.3 % 09/01/25 03:31 Neut # (Auto) 3.77 10^3/uL (1.8-7.7) 09/01/25 03:31 Lymph # (Auto) 3.4 10^3/uL (0.8-4.8) 09/01/25 03:31 Edgar # (Auto) 0.7 10^3/uL (0.2-0.9) 09/01/25 03:31 Eos # (Auto) 0.6 10^3/uL (0.0-0.8) 09/01/25 03:31 Baso # (Auto) 0.0 10^3/uL (0.0-0.1) 09/01/25 03:31 Nucleated RBC % (auto) 0 % 09/01/25 03:31 Nucleated RBCs # 0.0 /100WBC 09/01/25 03:31 Specimen Type Arterial 09/01/25 10:17 Specimen Type Not specified 09/01/25 10:17 Specimen Type Not specified 09/01/25 10:17 Sample Site Pa 09/01/25 10:17 Sample Site Ra 09/01/25 10:17 Sample Site Rv 09/01/25 10:17 ABG pH 7.43 (7.35-7.45) 08/31/25 13:50 ABG pCO2 28.0 mmHg (35-45) L 08/31/25 13:50 ABG pO2 59.4 mmHg (80.0-100.0) L 08/31/25 13:50 ABG PO2/FiO2 Ratio 282 08/31/25 13:50 ABG HCO3 18.4 mmol/L (22-26) L 08/31/25 13:50 ABG O2 Saturation 91.9 08/31/25 13:50 ABG Base Excess -4.4 mmol/L (-2.0-2.0) L 08/31/25 13:50 Nahid Test N/a 09/01/25 10:17 Nahid Test N/a 09/01/25 10:17 Nahid Test N/a 09/01/25 10:17 A-a O2 Gradient 9.7 mmHg (5-10) 09/01/25 10:17 A-a O2 Gradient Not Reportable 09/01/25 10:17 A-a O2 Gradient Not Reportable 09/01/25 10:17 Hematocrit 46.2 % (37-47) 09/01/25 10:17 Hematocrit 46.6 % (37-47) 09/01/25 10:17 Hematocrit 46.6 % (37-47) 09/01/25 10:17 Hgb O2 Saturation 52.4 % (95-100) L 09/01/25 10:17 Hgb O2 Saturation 54.5 % (95-100) L 09/01/25 10:17 Hgb O2 Saturation 70.9 % (95-100) L 09/01/25 10:17 Carboxyhemoglobin 0.9 %THgb (0.4-20.1) 09/01/25 10:17 Carboxyhemoglobin 1.0 %THgb (0.4-20.1) 09/01/25 10:17 Carboxyhemoglobin 1.0 %THgb (0.4-20.1) 09/01/25 10:17 Methemoglobin 0.8 % (0.4-1.5) 09/01/25 10:17 Methemoglobin 0.9 % (0.4-1.5) 09/01/25 10:17 Methemoglobin 0.9 % (0.4-1.5) 09/01/25 10:17 Total Hemoglobin 15.1 g/dL (12-16) 09/01/25 10:17 Total Hemoglobin 15.2 g/dL (12-16) 09/01/25 10:17 Total Hemoglobin 15.2 g/dL (12-16) 09/01/25 10:17 Sodium 135.0 mmol/L (131-143) 08/31/25 13:50 Potassium 4.1 mmol/L (3.5-5.0) 08/31/25 13:50 Glucose 83.0 mg/dL (70-115) 08/31/25 13:50 Ionized Calcium 1.2 mmol/L (1.1-1.4) 08/31/25 13:50 O2 Delivery Device Room air 09/01/25 10:17 O2 Delivery Device Room air 09/01/25 10:17 O2 Delivery Device Room air 09/01/25 10:17 FiO2 21.0 % 09/01/25 10:17 FiO2 21.0 % 09/01/25 10:17 FiO2 21.0 % 09/01/25 10:17 Spanish Speaking Nanny ID Amh 09/01/25 10:17 Spanish Speaking Nanny ID Amh 09/01/25 10:17 Spanish Speaking Nanny ID Amh 09/01/25 10:17 Sodium 141 mmol/L (136-145) 09/01/25 03:31 Potassium 4.4 mmol/L (3.5-5.1) 09/01/25 03:31 Chloride 109 mmol/L (98-107) H 09/01/25 03:31 Carbon Dioxide 19 mmol/L (22-29) L 09/01/25 03:31 Anion Gap 17.4 (5-19) 09/01/25 03:31 BUN 21 mg/dL (6-20) H 09/01/25 03:31 Creatinine 1.0 mg/dL (0.5-0.9) H 09/01/25 03:31 GFR Calculation 60.2 mL/min (90-130) L 09/01/25 03:31 Glucose 91 mg/dL (65-115) 09/01/25 03:31 Calculated Osmolality 295 mOsm/kg (285-295) 09/01/25 03:31 Calcium 8.8 mg/dL (8.5-10.5) 09/01/25 03:31 Phosphorus 5.4 mg/dL (2.5-4.5) H 09/01/25 03:31 Magnesium 1.8 mg/dL (1.7-2.3) 09/01/25 03:31 Total Bilirubin 0.5 mg/dL (0.15-1.2) 08/31/25 12:37 AST 38 U/L (0-32) H 08/31/25 12:37 ALT 69 U/L (0-33) H 08/31/25 12:37 Alkaline Phosphatase 70 U/L (35-105) 08/31/25 12:37 Troponin T 5th Gen ng/L 14 ng/L (0-10) H 09/01/25 03:31 Troponin T Baseline 12 ng/L (0-10) H 08/31/25 12:37 Troponin T 120 Minute 12.12 ng/L (0-10) H 08/31/25 14:31 Delta Troponin T 0.12 ABS# (0-10) 08/31/25 14:31 Troponin T Hi Sens 6Hr 12.97 ng/L (0-10) H 08/31/25 18:35 Troponin T Hi Sens 6Hr Delta 0.97 ng/L (0-12) 08/31/25 18:35 NT-Pro-B Natriuret Pep 3269 pg/mL (0-125) H 08/31/25 12:37 Total Protein 6.4 g/dL (6.6-8.7) L 08/31/25 12:37 Albumin 4.3 g/dL (3.5-5.2) 08/31/25 12:37 Globulin 2.1 g/dL (1.3-4.6) 08/31/25 12:37 TSH 2.82 uIU/mL (0.27-4.20) 09/01/25 18:29 HCG, Qual Negative (Negative) 08/31/25 12:37 Rheumatoid Factor 10.0 IU/mL (0-14) 09/01/25 18:29 HIV 1&2 Ab & HIV 1 Ag Non-reactive (Non-Reactiv) 09/01/25 18:29 HIV 1&2 Antibody Non-reactive (Non-Reactiv) 09/01/25 18:29 Vitals Last Vital Signs Temp 97.4 F L 09/02/25 07:07 Pulse 118 H 09/02/25 09:18 Resp 13 09/02/25 07:07 BP 122/83 09/02/25 07:07 Pulse Ox 96 09/02/25 09:18 O2 Del Method Room Air 09/02/25 09:18 Discharge Plan Discharge Patient Disposition: Home Condition: Stable Prescriptions: New (DME) Macitentan See Rx Instructions .ROUTE .MEDSUPPLY Qty: 1 3RF Rx Instructions: As directed (DME) Tadalafil See Rx Instructions .ROUTE .MEDSUPPLY Qty: 1 3RF Rx Instructions: As directed furosemide [Lasix] 20 mg tablet 10 mg PO DAILY PRN (Reason: edema) Qty: 90 0RF Continued albuterol sulfate [Ventolin HFA] 90 mcg/actuation HFA aerosol inhaler 1 inh inhalation Q4H PRN (Reason: shortness of breath or wheezing) Qty: 8.5 1RF medroxyprogesterone [Depo-Provera] 150 mg/mL suspension 150 mg IM .[id number] Qty: 1 0RF latanoprost 0.005 % drops 1 drp ophthalmic (eye) BEDTIME dorzolamide-timolol 22.3-6.8 mg/mL drops 1 drp ophthalmic (eye) BID brimonidine 0.15 % drops 1 drp ophthalmic (eye) BID Held ibuprofen 800 mg tablet See Rx Instructions .ROUTE .COMPLEX Qty: 90 0RF Hold Instructions: Resume on 09/02/26. Consult with PCP before resuming Dose Instruction: TAKE 1 TABLET BY MOUTH every 8 HOURS Needed FOR PAIN Rx Instructions: TAKE 1 TABLET BY MOUTH every 8 HOURS Needed FOR PAIN losartan 25 mg tablet 25 mg PO DAILY Qty: 30 2RF Hold Instructions: Resume on 09/02/26. Review with industrial safety and health manager/automotive internet sales consultant before resuming Discharge Order = DC NOW: Discharge Order (Routine); Ordered 09/02/25 Ordered By: Amada Sheikh Referrals: [facility] [Other] - 4-7 days Referral Note: would like to rever to Grzegorz Nye MD [Physician, Pulmonology] - 4-7 days KIRAN Arias FNP [Primary Care Provider, Family Practice] - 09/08/25 9:45 am Therese Gomez FNP [Nurse Practitioner, Cardiology] - 09/26/25 8:30 am Discharge Diet: Cardiac Discharge Activity: Resume usual activity Patient Instructions: Dyspnea, Acute Kidney Injury (DC), Chronic Hypertension (DC), Methamphetamine Use Disorder (DC), Hypoxemia (DC), Transaminitis (ED), Opioid Safety, Patient Portal & Lindy Instructions Discharge Attestations Time Spent in Discharge Care*: greater than 30 min Quality Metrics Clinical Quality Measures [ No reported AMI, CVA or VTE this stay] Coding Level of Care Code 02612 Diagnoses Pulmonary hypertension I27.20 Dyspnea R06.00
[2025-09-02 10:39] VITALS: BP 122/83; PULSE 99; RESP 17; O2SAT 96
[2025-09-02 11:03] VITALS: BP 89/67; PULSE 87; RESP 22; TEMP 36.4; O2SAT 90
--- NOTE | 2025-09-02 12:36 | PC.SOCIAL ---
Patient didnt qualify for oxygen at this time, no oxygen needed to discharge.
--- NOTE | 2025-09-02 13:00 | P.PN_ITS ---
Subjective 2 Subjective: Mojgan Negrete is a 45 year old female with active methamphetamine abuse, tricuspid valve regurgitation, glaucoma, neuropathy is admitted with increasing shortness of breath over the last few months. She works in a [employer] industry. She has been on methamphetamine since the age of 15. Also drinks alcohol 12 1.5 mL shots throughout the day. She was seen by cardiology Dr. Teixeira and sent immediately to ED. In the ED she had an echocardiogram done recently that showed right heart strain severe possible left atrial enlargement incomplete right bundle branch block. Had a CT chest done that did not show any PE. She was then seen by cardiology and had a right and left heart cath performed by Dr. Dominguez showing very severe pulmonary hypertension precapillary. I was consulted for further management Patient denies any history of PE or primary pulmonary hypertension causes in the family. 09/02/2025 Patient is stable did not need home oxygen. Walking halls not short of breath or complaining of chest pain. Blood pressure stable. Vitals/I&O/Wt Last Vital Signs Temp 97.6 F 09/02/25 11:03 Pulse 87 09/02/25 11:03 Resp 22 H 09/02/25 11:03 BP 89/67 09/02/25 11:03 Pulse Ox 90 09/02/25 11:03 O2 Del Method Room Air 09/02/25 11:03 Weight last 48 hrs Weight 177 lb Weight 177 lb 0.499 oz Weight 170 lb Physical Exam 2 Narrative: Per RN General: alert, NAD HEENT: EOMI Pulmonary: CTAB Cardiovascular: rrr, nl s1s2, Abdomen: soft, nt, nd, no r/g, Extremities: no edema Neurologic: grossly intact Agree with above exam Data 09/01/25 03:31 09/01/25 03:31 A&P Assessment and plan 1. Pulmonary hypertension: 2. Dyspnea: Plan: # Severe primary arterial pulmonary hypertension-differential includes primary causes including idiopathic pulmonary hypertension but most likely is methamphetamine induced PAH. I reviewed her numbers showing RA pressure mean of 16 RV mean of 26, PA mean 55, PCWP of 17, normal cardiac output and cardiac index. High transpulmonary gradient of 38 and high pulmonary vascular resistance at 6.35. Vasoreactivity test not done. I explained the findings to the patient explaining that she has very severe right heart failure secondary to primary arterial pulm hypertension caused by methamphetamine abuse most likely. I will however run a panel of tests to rule out other causes such as cardiovascular disorder as well as hypothyroidism with a TSH. I advised her strongly to seek help to stop methamphetamine abuse, help and assistance will be provided to touch base with centers for addiction. I also discussed with pharmacy regarding obtaining macitentan and tadalafil to be started at 10 mg and 20 mg daily. Home oxygen not needed on evaluation today. Will give her 10 mg of Lasix as needed. Multiple discussions held between pharmacy staff and myself along with primary. We cannot get the medications to [facility] today, they are closed. We will try to obtain them after prior Auth through [facility] pharmacy. Tadalafil (PDE 5 inhibitor) may be generic. test ordered prior to initiating Macitentan. Very expensive current generic form available. Appreciate pharmacy team's help. # Hypotension episodes-resolved. # Methamphetamine abuse-watch for withdrawals. Will refer her to [facility] post discharge. # Alcohol use - Explained to the patient that tadalafil and macitentan will need close monitoring of LFTs since they are hepatotoxic. I advised her strongly to stop drinking alcohol. I worry that if we stop the medications compliance and reliability about being able to abstain from alcohol and methamphetamine will always remain an issue. If she starts the medication she has a very high risk of rebound hypotension and decompensated right heart failure if she stops the medications without instruction or monitoring. Medical decision making level-high High MDM includes number and complexity of problems actively addressed during encounter, amount and/or complexity of data reviewed/ordered [ previous or external records, resulted lab(s)/test(s), ordered lab(s)/test(s), independent historian, independent test interpretation and other healthcare professional discussion] and described risk of complication, morbidity or mortality of management as documented This documentation was created by [employer] folder seamer automatic software (known for inherent folder seamer automatic error). Every effort was made to assure accuracy of folder seamer automatic. Any obvious errors or omissions should be clarified with the author of the document Telemedicine Consent Patient seen today via Telemedicine by agreement and consent of patient.? Telemedicine technology used during the visit includes audio and, as available, review of images.? The patient encounter is appropriate and reasonable under the circumstances given the patient?s particular presentation at this time.? The patient has been advised of the potential risks and limitations of this mode of treatment (including but not limited to the absence of in-person examination) and has agreed to be treated in a remote fashion in spite of them.? PDMP PDMP Reviewed: Not Reviewed Attestations 2 Medical Necessity Statement*: Awaiting meds before discharge Coding Level of Care Code 40006 Diagnoses Pulmonary hypertension I27.20 Dyspnea R06.00
--- NOTE | 2025-09-02 13:27 | PC.SOCIAL ---
Inpatient pharmacy called requesting that CM call [facility] and confirm that patient is in their system. CM called and they are currently on lunch. CM to call back after 2pm
--- NOTE | 2025-09-02 15:04 | PC.SOCIAL ---
JUANPABLO called [facility] to check on scripts and Claudia states that she cant do anything with scripts because they didnt have a dosage size or quantity. JUANPABLO called Corbin back at pharmacy and let him know what i had found out and gave him the information so he could call Claudia at [facility] pharmacy back with the information needed.
--- NOTE | 2025-09-04 12:44 | PC.NURSE ---
Pt called in regards to her new Rx Around 8:30 AM, received a call from this pt that she has trouble with her new Rx and she wants it sent to [facility] in [place]. Pt was DC over the weekend and all new Rx were sent to [facility] pharmacy. This nurse called [facility] and verified the Rx and they said they have cancelled all of it already, they also don't carry Macitentan. Called [facility] in [place] and pharmacy stated they don't have this medication Macitentan and pt's Tadalafil don't have a specific directions as ordered in her discharge so the nurse can't call it in. This nurse called [facility] around 1242 pm to get us some help and clarification in regards to dispensing these medications and there dose instructions. Talked to clinic nurse and they told me Dr Canchola is not in clinic today and told me that they will call this patient to get her a follow up appt schedule with regulatory consultant KORY. Will call pt back to inform her about our effort today.
[2025-09-04 13:25] LABS: COMPLEMENT COMPONENT C3C 159 mg/dL (83-193); COMPLEMENT COMPONENT C4C 24 mg/dL (15-57)
[2025-09-04 14:45] LABS: COMPLEMENT, TOTAL (CH50) >60 U/mL (31-60)
[2025-09-05 12:33] LABS: THYROID PEROXIDASE ANTIBODIES <1 IU/mL (<9)
[2025-09-05 13:33] LABS: ANCA Screen NEGATIVE (NEGATIVE)
[2025-09-06 07:45] LABS: CENTROMERE B ANTIBODY <1.0 NEG AI (<1.0 NEG); JO-1 ANTIBODY <1.0 NEG AI (<1.0 NEG); RNP ANTIBODY <1.0 NEG AI (<1.0 NEG); SCL-70 ANTIBODY <1.0 NEG AI (<1.0 NEG); SS-B <1.0 NEG AI (<1.0 NEG)
[2025-09-06 15:09] LABS: SCL 70 <1.0 NEG AI (<1.0 NEG)
[2025-09-06 20:24] LABS: DNA AB (DS) CRITHIDIA,IFA NEGATIVE (NEGATIVE)
== END 2025-09-02 14:16 | disposition home or self-care (01) | DRG 192 ==
LOC: ER 14:15 → CSU 17:28 → ER IP 09-01 12:02
PROVIDERS: Clinical Nurse Specialist Acute Care; Emergency Medicine; Internal Medicine; Admitting Provider Family Medicine; Emergency Provider Emergency Medicine; PCP Nurse Practitioner Family; Visit Provider Registered Nurse
PROC: 4A023N6 Measurement of Cardiac Sampling and Pressure, Right Heart, Percutaneous Approach (ICD-10-PCS; principal; 2025-09-01 10:00)
DX: I27.0 Primary pulmonary hypertension (principal); I50.810 Right heart failure, unspecified; F15.188 Other stimulant abuse with other stimulant-induced disorder; I07.1 Rheumatic tricuspid insufficiency; I95.9 Hypotension, unspecified; J96.91 Respiratory failure, unspecified with hypoxia; I45.10 Unspecified right bundle-branch block; R74.01 Elevation of levels of liver transaminase levels; N17.9 Acute kidney failure, unspecified; F17.200 Nicotine dependence, unspecified, uncomplicated; H40.9 Unspecified glaucoma; G62.9 Polyneuropathy, unspecified
CPT/HCPCS: 36415; 36600; 71045; 71275; 80048; 80051; 80053; 82164; 82330; 82805; 82810; 83735; 83880; 84100; 84443; 84484; 84702; 84703; 85025; 86036; 86160; 86162; 86235; 86255; 86376; 86431; 87806; 93005; 93451; 94760; 99152; 99153; 99285; C1751; C1769; C1894; G0378; J1644; J2250; J3010; J7030; J9999

== ENCOUNTER → 2025-09-07 11:25 | Outpatient (BNVA) | payer MEDICAID, SELFPAY | PROVIDERS: PCP Nurse Practitioner Family; Visit Provider Internal Medicine | DX: J44.9 Chronic obstructive pulmonary disease, unspecified (principal); R06.00 Dyspnea, unspecified; R06.89 Other abnormalities of breathing; I27.20 Pulmonary hypertension, unspecified | CPT/HCPCS: 36415; 80053; 80074; 82103; 83880 ==

== ENCOUNTER → 2025-09-12 12:08 | Outpatient (BNVA) | payer MEDICAID, SELFPAY | PROVIDERS: PCP Nurse Practitioner Family; Visit Provider Nurse Practitioner Family | DX: I10 Essential (primary) hypertension (principal); R01.1 Cardiac murmur, unspecified; I07.1 Rheumatic tricuspid insufficiency | CPT/HCPCS: 80053; 83880; 85025 ==